=== PATIENT | female | born 1985 | race Caucasian/White ===

== ENCOUNTER 2025-04-20 15:12 | Outpatient (REF) | payer BC, SELFPAY ==
[2025-04-20 18:36] LABS: Alanine Aminotransferase 21 U/L (0-31); Albumin Level 4.7 g/dL (3.5-5.0); Alkaline Phosphatase 63 U/L (39-117); Anion Gap 11 (12-20); Aspartate Amino Transferase 23 U/L (5-31); Blood Urea Nitrogen 15 mg/dL (9-16); Calcium 9.4 mg/dL (8.4-10.2); Carbon Dioxide 28 mmol/L (22-29); Chloride 107 mmol/L (96-108); Estimated Glomerular Filt Rate > 60; Gamma Glutamyl Transpeptidase 23 U/L (7-33); Magnesium 1.9 mg/dL (1.6-2.6); Potassium 3.7 mmol/L (3.3-5.1); Sodium 142 mmol/L (135-145); Total Protein 7.2 g/dL (6.5-8.0)
[2025-04-20 19:06] LABS: Folate 9.7 ng/mL (> or = 4.0); Vitamin B12 291 pg/mL (200-900)
[2025-04-20 19:39] LABS: Erythrocyte Sedimentation Rate 6 MM/HR (0-20)
--- OUTSIDE RECORDS SUMMARY | 2025-04-20 21:39 | XMS_ITS | Encounter Summary ---
Author Organization [facility] Address [address] [place] [address] Phone Care Team Providers Care Occupational Therapist Per Diem Name Role Phone Abdirahman Lincoln DO Unavailable Perla Gilmroe BSA/AML COMPLIANCE OFFICER Unavailable [phone] Valdez Chicas MD Unavailable [phone] Wong Perez MD Unavailable [phone] Sil Bautista NP Unavailable [phone] Vicenteroland, Abdirahman A DO Primary Care Provider [phone] Latonia, Abdirahman Kai DO Unavailable Vicenteda, Abdirahman A DO Primary Care Provider [phone] Encounter Details Date Type Department Care Team (Latest Contact Info) Description 11/20/2019 Transcribe Orders Virtual Department [address] [place] [address] Clara Yañez PA [address] [place] [address] [place] [address] Nontoxic goiter, unspecified (Primary Dx) Social History Tobacco Use Types Packs/Day Years Used Date Smoking Tobacco: Never Comments Unknown Sex and Gender Information Value Date Recorded Sex Assigned at Female 01/17/2018 11:26 AM EDT Legal Sex Female 9:10 PM EDT Gender Identity Female 01/17/2018 11:26 AM EDT Sexual Orientation Not on file documented as of this encounter Plan of Treatment Not on file documented as of this encounter Results * US Thyroid Gland (12/04/2019 1:25 PM EDT) Anatomical Region Laterality Modality Neck, Head, Chest Ultrasound 12/04/2019 1:31 PM EDT Impressions 12/04/2019 1:32 PM EDT Normal study, no evidence of thyroid nodules or evidence of parathyroid adenoma. Narrative 12/04/2019 1:32 PM EDT US THYROID GLAND TECHNIQUE: Ultrasound of the thyroid. COMPARISON: none FINDINGS: Right Thyroid: The right lobe measures 5.4 cm in sagittal dimension. No right sided adenopathy is detected. Left Thyroid: The left lobe measures 4.3 cm in sagittal dimension. No left sided adenopathy is detected. Parathyroid: A parathyroid adenoma is not identified. Procedure Note Michele Pruitt MD - 12/04/2019 US THYROID GLAND TECHNIQUE: Ultrasound of the thyroid. COMPARISON: none FINDINGS: Right Thyroid: The right lobe measures 5.4 cm in sagittal dimension. No right sided adenopathy is detected. Left Thyroid: The left lobe measures 4.3 cm in sagittal dimension. No left sided adenopathy is detected. Parathyroid: A parathyroid adenoma is not identified. IMPRESSION: Normal study, no evidence of thyroid nodules or evidence of parathyroidadenoma. us Clara Titi TIRADO IMG US THYROID Final Resul t documented in this encounter Visit Diagnoses Diagnosis Nontoxic goiter, unspecified- Primary Nontoxic goiter, unspecified documented in this encounter Care Teams Occupational Therapist Per Diem Relationship Specialty Start Date End Date Abdirahman Lincoln DO PCP - General 05/16/17 06/03/24 Abdirahman Lincoln DO [address] [place] [address] PCP - General Internal Medicine 06/04/24 Abdirahman Lincoln DO Historical LMR Provider 02/25/17 Perla Gilmore NP [address] [place] [address] [email or web address] Historical LMR Provider 02/25/17 2 Valdez Chicas MD [address] [address] Historical LMR Provider 02/25/17 05/20/21 Wong Perez MD [address] [place] [phone] Historical LMR Provider 02/25/17 2 Sil Bautista NP [address] [place] [id number] Historical LMR Provider 02/25/17 2 Abdirahman Lincoln DO [address] [place] [phone] Insurance Assigned Provider 08/17/23 documented as of this encounter Additional Source Comments The information contained in this document represents components of the legal health record. It is not the complete legal health record.[facility]
--- OUTSIDE RECORDS SUMMARY | 2025-04-20 21:39 | XMS_ITS | Encounter Summary ---
Author Organization [facility] Address [address] [place] [address] Phone Care Team Providers Care Packaging Manager Name Role Phone Abdirahman Lincoln DO Unavailable Perla Gilmore FOUR SLIDE MACHINE SETTER Unavailable [phone] Valdez Chicas MD Unavailable [phone] Wong Perez MD Unavailable [phone] Sil Bautista NP Unavailable [phone] Abdirahman Lincoln DO Primary Care Provider [phone] Abdirahman Lincoln DO Unavailable Abdirahman Lincoln DO Primary Care Provider [phone] Encounter Details Date Type Department Care Team (Late st Contact Info) Description 01/17/2018 Procedure Pass [facility], Ct Scan - [address] [address] Social History Tobacco Use Types Packs/Day Years Used Date Smoking Tobacco: Never Comments Unknown Sex and Gender Information Value Date Recorded Sex Assigned at Female 01/17/2018 11:26 AM EDT Legal Sex Female 9:10 PM EDT Gender Identity Female 01/17/2018 11:26 AM EDT Sexual Orientation Not on file documented as of this encounter Plan of Treatment Not on file documented as of this encounter Visit Diagnoses Not on filedocumented in this encounter Care Teams Packaging Manager Relationship Specialty Start Date End Date Abdirahman Lincoln DO PCP - General 05/16/17 06/03/24 Abdirahman Lincoln DO [address] [place] [address] PCP - General Internal Medicine 06/04/24 Abdirahman Lincoln DO Historical LMR Provider 02/25/17 Perla Gilmore NP [address] [place] [address] [email or web address] Historical LMR Provider 02/25/17 2 Valdez Chicas MD [address] [address] Historical LMR Provider 02/25/17 05/20/21 Wong Perez MD [address] [place] [phone] Historical LMR Provider 02/25/17 2 Sil Bautista NP [address] [place] [phone] Historical LMR Provider 02/25/17 2 Abdirahman Lincoln DO [address] [place] [address] Insurance Assigned Provider 08/17/23 documented as of this encounter Additional Source Comments The information contained in this document represents components of the legal health record. It is not the complete legal health record.[facility]
--- OUTSIDE RECORDS SUMMARY | 2025-04-20 21:39 | XMS_ITS | Encounter Summary ---
Author Organization [facility] Address [address] [facility] [address] [place] [address] Phone Care Team Providers Care Environmental Monitoring Technician Name Role Phone Abdirahman Lincoln DO Unavailable Bigda, Abdirahman A DO Unavailable Bigda, Abdirahman A DO Primary Care Provider [phone] Reason for Referral * MRI/CAT Scan - Closed Specialty Diagnoses / Procedures Referred By Aminta pickard Referred To Contact Radiology Diagnoses Other specified disorders of synovium, left shoulder Procedures MRI Shoulder (Left) Clara Yañez PA [address] [place] [address] Phone: tel: fax: Referral ID Status Reason Start Date Expiration Date Visits Re quested Visits Authorized [id number] Closed 09/02/2024 09/02/2025 1 1 Encounter Details Date Type Department Care Team (Latest Contact Info) Description 09/02/2024 Transcribe Orders Virtual Department [address] [place] [address] Clara Yañez PA [address] [place] [address] [place] [address] Other specified disorders of synovium, left shoulder (Primary Dx) Social History Tobacco Use Types Packs/Day Years Used Date Smoking Tobacco: Never Smokeless Tobacco: Never Alcohol Use Standard Drinks/Week Comments Yes 0 (1 standard drink = 0.6 oz pur e alcohol) socially Education Answer Date Recorded Are you interested in more education? Not on sabine e 09/07/2022 Are you concerned about learning? Not on file 09/07/2022 No 09/07/2022 No 09/07/2022 Digital Access Answer Date Recorded No 10/05/2022 No 10/05/2022 Reliable internet access at home? Not on file 10/05/2022 Device with a working camera? Not on file Intimate Partner Violence Answer Date R ecorded Are you denied basic needs s uch as food, clothing, or medical care? No 05/29/2024 In the past 12 months have y ou been in a relationship with a person who hurts, threatens, or tries to control you? No 05/29/2024 Are you denied basic needs s uch as food, clothing, or medical care? No 05/29/2024 In the past 12 months have y ou been in a relationship with a person who hurts, threatens, or tries to control you? No 05/29/2024 Comments No Sex and Gender Information Value Date Recorded Sex Assigned at Female 01/17/2018 11:26 AM EDT Legal Sex Female 9:10 PM EDT Gender Identity Female 01/17/2018 11:26 AM EDT Sexual Orientation Not on file documented as of this encounter Plan of Treatment Not on file documented as of this encounter Results * MRI SHOULDER WITHOUT CONTRAST (LEFT) (09/19/2024 4:11 PM EDT) Anatomical Region Laterality Modality Shoulder Left Magnetic Resonan ce 09/22/2024 1:30 PM EDT Impressions 09/22/2024 1:57 PM EDT Unremarkable MRI of the left shoulder. Narrative 09/22/2024 1:57 PM EDT MRI SHOULDER WITHOUT CONTRAST (LEFT) Referring clinician's provided indication for this examination in Epic: Outside Radiology Order; infraspinatus tendinitis TECHNIQUE: Multi-sequence, multi-planar MRI of the shoulder without intravenous contrast. COMPARISON: Left shoulder radiographs 08/24/2024 FINDINGS: Coracoacromial Arch: The acromioclavicular joint is unremarkable. There is no significant fluid within the subacromial subdeltoid bursa. Rotator Cuff: The supraspinatus, infraspinatus, subscapularis, and teres minor tendons are intact. There is no fatty infiltration of the rotator cuff muscles. Glenoid Labrum and Biceps Tendon: Evaluation of the labrum is limited in the absence of intracapsular contrast. Within this limitation, there is no evidence of a discrete displaced labral tear. The long head of the biceps tendon is normally located and intact. Bones: There is no evidence of acute fracture, subluxation, or dislocation. Glenohumeral Joint: The glenohumeral articular cartilage is intact. There is no glenohumeral joint effusion. Additional Findings: The scapular notch and quadrilateral space are unremarkable. There is no lymphadenopathy by size criteria. Procedure Note Jeaneth Lopes MD - 09/22/2024 MRI SHOULDER WITHOUT CONTRAST (LEFT) Referring clinician's provided indication for this examination in Epic:Outside Radiology Order; infraspinatus tendinitis TECHNIQUE: Multi-sequence, multi-planar MRI of the shoulder withoutintravenous contrast. COMPARISON: Left shoulder radiographs 08/24/2024 FINDINGS: Coracoacromial Arch: The acromioclavicular joint is unremarkable. There isno significant fluid within the subacromial subdeltoid bursa. Rotator Cuff: The supraspinatus, infraspinatus, subscapularis, and teresminor tendons are intact. There is no fatty infiltration of the rotatorcuff muscles. Glenoid Labrum and Biceps Tendon: Evaluation of the labrum is limited inthe absence of intracapsular contrast. Within this limitation, there is noevidence of a discrete displaced labral tear. The long head of the bicepstendon is normally located and intact. Bones: There is no evidence of acute fracture, subluxation, ordislocation. Glenohumeral Joint: The glenohumeral articular cartilage is intact. Thereis no glenohumeral joint effusion. Additional Findings: The scapular notch and quadrilateral space areunremarkable. There is no lymphadenopathy by size criteria. IMPRESSION: Unremarkable MRI of the left shoulder. Clara TIRADO IMG MR EXTREMITY Final Resu lt documented in this encounter Visit Diagnoses Diagnosis Other specified disorders of synovium, left shoulder- Primary Other specified disorders of synovium, left shoulder documented in this encounter Care Teams Environmental Monitoring Technician Relationship Specialty Start Date End Date Abdirahman Lincoln DO [address] [place] [address] PCP - General Internal Medicine 06/04/24 Abdirahman Lincoln DO Historical LMR Provider 02/25/17 Abdirahman Lincoln DO [address] [place] [address] Insurance Assigned Provider 08/17/23 documented as of this encounter Additional Source Comments The information contained in this document represents components of the legal health record. It is not the complete legal health record.[facility]
--- OUTSIDE RECORDS SUMMARY | 2025-04-20 21:39 | XMS_ITS | Encounter Summary ---
Author Organization [facility] Address [address] [facility] [address] [place] [address] Phone Care Team Providers Care Welfare Aide Name Role Phone Abdirahman Lincoln DO Unavailable Bigda, Abdirahman A DO Unavailable Bigda, Abdirahman A DO Primary Care Provider [phone] Encounter Details Date Type Department Care Team (Late st Contact Info) Description 09/02/2024 Procedure Pass [facility], [address] [address] Social History Tobacco Use Types Packs/Day Years [...] on filedocumented in this encounter Care Teams Welfare Aide Relationship Specialty Start Date End Date Abdirahman Lincoln DO [address] [place] [address] PCP - General Internal Medicine 06/04/24 Abdirahman Lincoln DO Historical LMR Provider 02/25/17 Abdirahman Lincoln DO [address] [place] [address] Insurance Assigned Provider 08/17/23 documented as of this encounter Additional Source Comments The information contained in this document represents components of the legal health record. It is not the complete legal health record.[facility]
--- OUTSIDE RECORDS SUMMARY | 2025-04-20 21:39 | XMS_ITS | Clinical Summary ---
Author Organization [facility] Address [address] [place] [phone] Phone Care Team Providers Care Station Detective Name Role Phone Abdirahman Lincoln DO Unavailable Bigda, Abdirahman A DO Unavailable Bigda, Abdirahman A DO Primary Care Provider [phone] Allergies Active Allergy Reactions Criticality Noted Date Comments Calcium Phosphate-Vitamin D3 Throat Tightness Medium 05/29/2024 Culture in yogurt only - not gummy Medications ibuprofen (ADVIL,MOTRIN) 600 MG tablet Take 1 tablet (600 mg total) by mouth every 6 (six) hours as needed. 2 Active Additional Information Patient not taking.Reported on 05/29/2024 amitriptyline (ELAVIL) 10 MG tablet Take 1 tablet (10 mg total) by mouth nightly at bedtime. 30 tablet 1 4 Active Additional Information Patient not taking.Reported on 05/29/2024 Active Problems Problem Noted Date Diagnosed Date Dyspareunia in female 06/04/2023 Thyromegaly 01/16/2022 Overview (01/16/2022): Client reports that size of thyroid has been noted chronically, she has had her thyroid hormones checked repeatedly and they have been normal. She reports no history of thyroid imaging. Consider follow up with PCP . Needle phobia 01/16/2022 Overview (01/16/2022): Please keep IVs covered, do not allow client to see needles, wait until she says ready to proceed. Assessment & Plan (01/16/2022 11:09 PM EDT): Consents to IVs in labor, aware that 2 may be necessary History of anxiety 11/19/2021 Assessment & Plan (11/19/2021 12:57 PM EDT): Has a long history of anxiety and has used meds in the past through PCP. She has been feeling great in and thinks the hormones have really helped her EPDS 5 today. Does plan to get back on meds PP, has reached out to PCP already. Cystic fibrosis carrier 07/18/2021 Overview (08/22/2021): Patient is a carrier. Partner Kishore Raymond tested and is negative Assessment & Plan (08/22/2021 2:48 PM EDT): Partner was tested and is negative. Assessment & Plan (07/25/2021 1:15 PM EDT): We reviewed CF carrier status; advised partner screening. She agrees. TE sent to triage to facilitate screening for Kishore Raymond. Resolved Problems Problem Noted Date Diagnosed Date Resolved Date Normal intrauterine , antepartum 01/16/2022 06/04/2023 Encounter for induction of labor 01/16/2022 06/04/2023 Overview (01/18/2022): For GDMA2 at 39.2. 01/16/22 20:45 Cervix posterior on admission, CNM not easily able to reach cervix. 25mcg misoprostol SL 01/17/22 01:45 25mcg misoprostol SL, exam deferred 06:00 25 mcg misoprostol SL, exam deferred 10:00 25 mcg misoprostol SL, exam deferred 21:00 starting low-dose Pitocin 01/18/22 01:30 requesting epidural 03:00 SVE attempted, vertex at 0 station and unable to reach os due to low presenting part Assessment & Plan (01/18/2022 6:58 AM EDT): A: 36 y.o. at 39w3d for IOL s/t GDMA1 Cat 1 FHR GBS neg Covid neg Euglycemic P: - Cont to titrate Pitocin per protocol - Discussed repeat cervical exam this morning. Plan to defer to oncoming weigher alloy as pt has not yet achieved adequate contraction pattern and was just assisted into side-lying position when I entered - Report given to morning team Insulin controlled gestation al diabetes mellitus (GDM) in third trimester 12/28/20212023 Overview (01/04/2022): Diabetes on medications 12/28/21 insulin started at 10units. 01/04/22 insulin increased to 12 units for elevated fastings o refer to CEDE --done o 32 wks: BPP -- not done, dx at 36+4 wks o 36 wks add NST --weekly bpp and nst ordered o 36-39wks growth sono o Induction at 39-40.0 wks --discussed with patient. Assessment & Plan (03/01/2022 12:48 PM EDT): Disc artemio to have 2 hr GTT to determine underlying DM at the hospital and yearly HgbA1c Disc importance of daily walking and low-glycemic, anti-inflammatory diet for prevention Assessment & Plan (01/16/2022 10:49 PM EDT): During cervical ripening and early labor check 1-2 hour postprandial blood glucose, if client sleeps overnight check a morning fasting. On admission/ night 1, administer detemir 12 units Blood sugars since admission - random blood glucose (90), 2 hour postprandial (121). Reviewed plan of care with Dr. Morris. Assessment & Plan (01/11/2022 12:55 PM EDT): Still taking insulin 12 units. Fasting BG tends to be 105-110. Postprandials tend to be okay. Wakes in the night feeling nausea/hungry. Plans to message CEDE today. NST reactive today. Discussed IOL may take a couple of days, process of achieving active labor. Reviewed will most likely need two IVs in labor, will have frequent blood glucose checks in active labor, and may need IV insulin. Benji is very anxious at the thought of IVs, also anxious at the thought of nitrous and will not want to use it for IV placement. Would like to have IVs covered so she doesn't seem them - discussed we can be creative about that. Assessment & Plan (01/04/2022 1:09 PM EDT): Pt states she is following the GDM diet very well All FBS are elevated 109-111 generally. Insulin increased to 12units FKK reviewed. Assessment & Plan (12/28/2021 1:17 PM EDT): Pt crying, and very upset with diagnosis. Feels confused about why fasting bs is so high and pp bs is normal. Feels overwhelmed with diagnosis and need for nightly injections. Pt has a needle phobia. Long discussion with pt regarding dx and recommendations. We reviewed that when fasting bs is elevated and unable to be controlled with diet that insulin does the work her body needs help with. Pt demonstrated understanding and agrees with testing. Wants some time to consider iol--please discuss at [place] Fasting bs average 115. Most pp bs normal. Biweekly testing ordered. Elevated glucose tolerance test 10/29/2021 06/04/2023 Overview (01/16/2022): Client on long acting insulin detemir since 12/28, now on 12 units nightly. Has been adherent to low glycemic index diet. One hour GTT 164 3 hour 112/171/150/114 Due to elevated FBS on 3 hr, followed by [facility] Assessment & Plan (12/14/2021 12:40 PM EDT): Has appt with [facility] today Assessment & Plan (11/16/2021 2:29 PM EDT): 3 hr not diagnostic for GDM but FBS was 112. Due to this I recommend [facility] referral for blood gluocse monitoring and dietary education if needed. She agrees Assessment & Plan (11/01/2021 5:21 PM EDT): Reviewed elevated 1 hr results- Benji plans to do three hour test on Saturday morning. Will follow up PRN. Assessment & Plan (10/29/2021 7:27 PM EDT): One hour GTT 164 Pt needs a 3hr gtt Order placed Encounter for supervision of normal first in third trimester 06/29/2021 06/04/2023 Overview (03/01/2022): CNM OB-CMI score: 1 [06/22/2021] Group PN care - gave info 09/05 Rh + GC/Chlam negative PAP 06/2021 nl/neg HPV Tdap 11/30/21 Flu * COVID-19 vaxed, will get booster Hgb 12.2 GTT 164 - 3 hr --only elevated fasting. 28 wk Repeat RPR neg GBS Neg PPBC Condoms screening nl NT, AFP declined Assessment & Plan (01/11/2022 12:54 PM EDT): Benji is a 36 y.o. at 38w4d, here for CARLITOS and NST Feeling very anxious about the . Will have her and sister with her. Tearful at discussion of things to expect in the induction/labor/. Reviewed FKC, encouraged to call with any decreased FM. Will return for BPP on 01/16 then IOL that evening at the [facility]. Assessment & Plan (01/04/2022 1:07 PM EDT): Benji reports feeling well. Baby very active. Denies s/sx of labor. BPP 01/01 was 8/8 NST reactive today. Pt would like to book IOL--scheduled for 01/16 at 1830 We discussed process and methods briefly. CARLITOS 01/08 as scheduled for BPP Assessment & Plan (12/28/2021 1:18 PM EDT): Baby active. Benji denies s/sx of ptl. GBS obtained and sent. RTO in 4 days for follow up with CNM and NST. Assessment & Plan (12/14/2021 12:40 PM EDT): Benji is a 36 y.o. at 34w4d Feeling okay. Active baby. GBS next visit, pt aware Encouraged to stay hydrated Reviewed plan for visits for remainder of . CARLITOS in two weeks Assessment & Plan (11/30/2021 1:21 PM EDT): Benji is a 36yo @ 32+4wks. States baby is very active. She denies s/sx of ptl. Very tearful today, states she's not sure why. She says her mood is good, just feeling emotional. Did not get referral to CEDE. We discussed GDM diet and will place referral again. We discussed that she does not have GDM, but bc fasting was elevated she may benefit from CEDE counseling. tdap given. Does not want to take CBE classes bc she says it will make her more anxious. States she is doing a lot of reading on her own and feels prepared. CARLITOS 2 wks. Assessment & Plan (11/19/2021 12:58 PM EDT): Benji is a 36 y.o. at 30w4d doing well. Denies VB/LOF/Ctxs. + FM. Discussed TDAP, she will do but wants to prepare - will do at [place]. Planning to pump breast milk for baby, worried she hasn't had colostrum yet - reassured that is fine and everyone is different. Today we discussed Pain management options for labor and . Assessment & Plan (11/08/2021 10:02 AM EDT): Benji was walking her dogs today and fell onto her bottom. She did not hit her belly. She is having some coccyx pain but no other complaints. She is feeling baby move. No pain in belly, no bleeding, no tightening in belly. She is nervous and wants to make sure her baby is ok. Normal heart rate. Positive movement. Belly is soft and non-tender. No tightening noted. Reassured that is ok. She will continue to monitor for symptoms. Tylenol and ice pack for coccyx pain. 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 Will call with any concerns. Assessment & Plan (11/01/2021 5:23 PM EDT): Benji is doing well- biggest complaint is worsening heartburn with no relief from tums. Safe meds reviewed- she will go to the pharmacy today. +FM. Hospital packet given. She is doing a lot of reading/ prep on her own, doesn't plan CBE. Return OB in two weeks. Assessment & Plan (10/10/2021 8:59 AM EDT): Benji is a 36 y.o. at 24w1d states she feels well today. Denies any concerns at this time. Denies any LOF/Vaginal bleeding/Ucs. Reports +FM -Discussed FM at this [facility] and [facility] -Prenatals re-ordered -Review signs and symptoms of Pre-term Labor and when/how to contact midwives -2nd trimester labs discussed for 28 wks. -Pt advised to come in earlier [place] and stop at the lab first to drink glucose drink prior to coming up for her CARLITOS visit. -Advised on Tdap administration in and implications. Administered between 28-36wk. - care structure discussed biweekly visits going forward -NV in 4 weeks Assessment & Plan (09/05/2021 3:17 PM EDT): Benji is a 36 y.o. at 20w2d, here with partner, Chay. Has felt a little movement. Nausea is improving. Normal anatomy scan today but multiple limited views. It's a girl! Discussed OPG and CBE, gave info for both Discussed schedule of visits. CARLITOS and repeat US in four weeks Assessment & Plan (08/22/2021 2:53 PM EDT): Feels ok, still struggling intermittently with nausea. Mostly gagging with strong smells and has some nausea several days per week. Able to tolerate a wide variety of foods and does not feel she needs any medical management. Discussed quickening, she is not feeling FM yet. Discussed AFP, she declines. Discussed and scheduled anatomy scan. Assessment & Plan (07/25/2021 1:14 PM EDT): Benji feels well and has no new ob concerns today. She denies vaginal bleeding, cramping, leaking fluid. RTO 4 weeks. Vaginal bleeding in pregnanc y, first trimester 06/13/2021 06/04/2023 Overview (07/12/2021): U/s today shows viable IUP with a clot left of the sac that is 4.7 x 1.9 x 1.1 cm Repeat US at 10 weeks, clot has shrunk to 1.8 x 1.2 x 1.1cm, and further shrinking on NT. No further testing indicated Assessment & Plan (06/13/2021 12:38 PM EST): Counseled; reassuring to have the pos FHR type is Rh positive Plan to repeat in 2 weeks discussed option to proceed now with an intake and routine care, or can defer this til after the next scan. Encounters Date Type Department Care Team Description 04/03/2025 1:00 AM EST - 04/03/2025 4:20 AM EST Emergency [facility] [address] [place] [address] Discharge Disposition: Home or Self Care from Last 3 Months Immunizations Immunization Administration Dates Next Due Tdap 11/30/2021 Family History Medical History Relation Comments Hypotension Father Anxiety disorder Maternal Grandfather Arthritis Maternal Grandfather Glaucoma Maternal Grandfather Gout Maternal Grandfather Heart disease Maternal Grandfather Anxiety disorder Maternal Grandmother Diabetes Maternal Grandmother Scoliosis Maternal Grandmother Allergies Mother Anxiety disorder Mother Arthritis Mother Hypertension Paternal Grandfather Stroke Paternal Grandfather Dialysis Paternal Grandmother Heart attack Paternal Grandmother Allergies Sister Anxiety disorder Sister Thyroid disease Sister Relation Status Comments Father Alive Maternal Grandfather Alive Maternal Grandmother Alive Mother Alive Paternal Grandfather Paternal Grandmother Sister Alive Social History Tobacco Use Types Packs/Day Years Used Date Smoking Tobacco: Never Smokeless Tobacco: Never Tobacco Cessation:Counseling Given: Not Answered Alcohol Use Standard Drinks/Week Comments Yes 0 (1 standard drink = 0.6 oz pur e alcohol) socially Education Answer Date Recorded Are you interested in more education? Not on sabine e 09/07/2022 Are you concerned about learning? Not on file 09/07/2022 No 09/07/2022 No 09/07/2022 Food Answer Date Recorded Within the past 6 months we worried whether our food would run out before we got money to buy more. Unable to assess 025 Within the past 6 months the food we bought just didn't last and we didn't have enough money to get more. Unable to assess 04/03/2025 Residential Stability Answer Date Recor ded What is your housing situation today? Unable to assess 04/03/2025 How many times have you moved in the past 12 sat th? Unable to assess 04/03/2025 Paying for Meds Answer Date Recorded Do you have trouble paying for medicines? Unable to assess 04/03/2025 Paying Utility Bills Answer Date Record ed Do you have trouble paying y our heating or electricity bill? Unable to assess 04/03/2025 Transportation Answer Date Recorded Has the lack of transportati on kept you from medical appointments or from getting medications? Unable to assess 04/03/2025 Digital Access Answer Date Recorded No 04/03/2025 No 04/03/2025 Do you have reliable internet access at home? Un able to assess 04/03/2025 Do you have a device (e.g., phone, tablet, computer) with a working camera? Unable to assess 04/03/2025 Intimate Partner Violence Answer Date R ecorded Are you denied basic needs s uch as food, clothing, or medical care? No 04/03/2025 In the past 12 months have y ou been in a relationship with a person who hurts, threatens, or tries to control you? No 04/03/2025 Are you denied basic needs s uch as food, clothing, or medical care? No 04/03/2025 In the past 12 months have y ou been in a relationship with a person who hurts, threatens, or tries to control you? No 04/03/2025 Comments No Sex and Gender Information Value Date Recorded Sex Assigned at Female 01/17/2018 11:26 AM EDT Legal Sex Female 9:10 PM EDT Gender Identity Female 01/17/2018 11:26 AM EDT Sexual Orientation Not on file Last Filed Vital Signs Vital Sign Reading Time Taken Comments Blood Pressure 132/77 04/03/2025 4:16 AM EST Pulse 84 04/03/2025 4:16 AM EST Temperature 36.7 C (98 F) 04/03/2025 4:16 AM EST Respiratory Rate 17 04/03/2025 4:16 AM EST Oxygen Saturation 98% 04/03/2025 4:16 AM EST Inhaled Oxygen Concentration - - Weight 104.3 kg (230 lb) 04/03/2025 12:46 AM EST Height 180.3 cm (5' 11 ) 04/03/2025 12:46 AM EST Body Mass Index 32.08 04/03/2025 12:46 AM EST Plan of Treatment Health Maintenance Due Date Last Done Comments DEPRESSION SCREENING 1999 PAP SMEAR 06/29/2024 06/29/2021, 06/01/2016 INFLUENZA VACCINE (#1) 2024 COVID-19 VACCINE (2024-2 6 season) 2025 11/06/2020, 10/16/2020 SCREENING FOR DIABETES 01/19/2025 , 01/16/2022 Adult Td,Tdap Booster 12/01/2031 11/30/2021 , 11/08/2021 HEPATITIS C SCREENING Completed 07/10/2021 , 07/10/2021, 07/10/2021 HIV ONE-TIME SCREENING (18-6 5 YEARS) Completed 07/10/2021 SMOKING STATUS SCREENING (On ce After 26 Yrs) Completed 06/26/2023 HEPATITIS A VACCINES Aged Out No long er eligible based on patient's age to complete this topic HIB VACCINES Aged Out No longer eligi ble based on patient's age to complete this topic MENINGOCOCCAL VACCINES (ACWY) Aged Out No longer eligible based on patient's age to complete this topic MENINGOCOCCAL VACCINES (B) Aged Out N o longer eligible based on patient's age to complete this topic PNEUMOCOCCAL VACCINES (0-49 years) Aged Out No longer eligible b ased on patient's age to complete this topic Medical Devices Not on file Procedures Procedure Name Priority Date/Time Associated Diagnosis Comments URINALYSIS WITH REFLEX TO URINE CULTURE STAT 04/03/2025 3:04 AM EST XR CHEST PA AND LATERAL 2 VIEWS Routine 04/03/2025 2:55 AM EST TROPONIN STAT 04/03/2025 2:48 AM EST CBC AND DIFFERENTIAL STAT 04/03/2025 1:28 AM EST TROPONIN STAT 04/03/2025 1:28 AM EST LIPASE STAT 04/03/2025 1:28 AM EST LFTS (HEPATIC PANEL) STAT 04/03/2025 1:28 AM EST CBC AND DIFFERENTIAL STAT 04/03/2025 1:28 AM EST BASIC METABOLIC PANEL (BMP) STAT 04/03/2025 1:28 AM EST ECG 12-LEAD STAT 04/03/2025 12:53 AM EST GLUCOSE Routine 01/16/2022 7:37 PM EDT HEPATITIS C ANTIBODY, QUALITATIVE Routine 07/10/2021 1:59 PM EST Need for hepatitis C screening test PAP TEST Routine 06/29/2021 12:00 AM EST from Last 3 Months or Most Recently Relevant to Health Maintenance Results * Urinalysis with Reflex to Urine Culture (04/03/2025 3:04 AM EST) Color Yellow Yellow 04/03/2025 3:15 AM EST [facility] Clarity Clear Clear 04/03/2025 3:15 AM EST [facility] Glucose Negative Negative 04/03/2025 3:15 AM EST [facility] Bilirubin Urine Negative Negative 3:15 AM EST [facility] Ketone Urine Negative Negative 04/03/2025 3:15 AM EST [facility] Specific [place] 1.020 1.001 - 1.035 04/03/2025 3:15 AM EST [facility] Blood Negative Negative 04/03/2025 3:15 AM EST [facility] pH 6.0 5.0 - 8.0 04/03/2025 3:15 AM EST [facility] Protein Negative Negative 04/03/2025 3:15 AM EST [facility] Nitrites Negative Negative 04/03/2025 3:15 AM EST [facility] Leukocyte Esterase Negative Negative 04/03/2025 3:15 AM EST [facility] Urobilinogen Negative Negative 04/03/2025 3:15 AM EST [facility] Urine (Urine, Voided) Non-Blood Collection / Unknown 04/03/2025 3:04 AM EST 04/03/2025 3:07 AM EST us Joselito Hansen PA-C LAB URINE ORDERABLES Final R esult Performing Organization Address City/State/[facility] Co de Phone Number [address] [address] * XR CHEST PA AND LATERAL 2 VIEWS (04/03/2025 2:55 AM EST) Anatomical Region Laterality Modality Chest Computed Radiogr aphy 04/03/2025 3:09 AM EST Impressions 04/03/2025 3:09 AM EST No acute abnormality. Narrative 04/03/2025 3:09 AM EST XR CHEST PA AND LATERAL 2 VIEWS Referring clinician's provided indication for this examination in [facility]: Pain COMPARISON: None FINDINGS: Devices/Tubes/Lines: None. Lungs: No focal consolidation or pulmonary edema. Pleura: No pleural effusion or pneumothorax. Heart/Mediastinum: Normal heart and mediastinum. Bones/Soft Tissues: Degenerative changes of the thoracic spine. Procedure Note Dottie Lau MD - 04/03/2025 XR CHEST PA AND LATERAL 2 VIEWS Referring clinician's provided indication for this examination in [facility]:Pain COMPARISON: None FINDINGS: Devices/Tubes/Lines: None. Lungs: No focal consolidation or pulmonary edema. Pleura: No pleural effusion or pneumothorax. Heart/Mediastinum: Normal heart and mediastinum. Bones/Soft Tissues: Degenerative changes of the thoracic spine. IMPRESSION: No acute abnormality. Joselito Hansen PA-C IMG XR CHEST Final Result * Troponin (04/03/2025 2:48 AM EST) Only the most recent of2 resultswithin the time period is included. Troponin-T HS Gen5 <6 0 - 9 ng/L 04/03/2025 3:31 AM [facility] Blood (Blood) Venipuncture / Unknown 04/03/2025 2:48 AM EST 04/03/2025 3:00 AM EST Joselito Hansen PA-C LAB BLOOD BKR ORDERABLES Fin al Result Performing Organization Address City/State/[facility] Co de Phone Number [address] [address] * (ABNORMAL) CBC and Differential (04/03/2025 1:28 AM EST) WBC 10.22 4.00 - 11.00 K/uL 04/03/2025 1:36 AM [facility] RBC 4.66 4.00 - 5.20 M/uL 04/03/2025 1:36 AM [facility] Hemoglobin 13.8 12.0 - 16.0 g/dL 04/03/2025 1:36 AM [facility] Hematocrit 40.1 36.0 - 46.0 % 04/03/2025 1:36 AM [facility] MCV 86.1 80.0 - 100.0 fL 04/03/2025 1:36 AM [facility] MCH 29.6 27.0 - 31.0 pg 04/03/2025 1:36 AM [facility] MCHC 34.4 32.0 - 36.0 g/dL 04/03/2025 1:36 AM [facility] MPV 9.3 8.4 - 12.0 fL 04/03/2025 1:36 AM [facility] RDW-CV 11.9 11.5 - 14.5 % 04/03/2025 1:36 AM [facility] PLT 228 150 - 450 K/uL 04/03/2025 1:36 AM [facility] Neutrophils 78.6 % 04/03/2025 1:36 AM [facility] Lymphocytes 16.0 % 04/03/2025 1:36 AM [facility] Monocytes 4.6 % 04/03/2025 1:36 AM [facility] Eosinophils 0.3 % 04/03/2025 1:36 AM [facility] Basophils 0.2 % 04/03/2025 1:36 AM [facility] Imm Grans 0.3 % 04/03/2025 1:36 AM [facility] NRBC 0.0 <=0.0 /100 WBCs 04/03/2025 1:36 AM [facility] Absolute Neutrophils 8.03(H) 1.92 - 7.60 K/uL 04/03/2025 1:36 AM [facility] Absolute Lymphocytes 1.64 0.72 - 4.10 K/uL 04/03/2025 1:36 AM [facility] Absolute Monocytes 0.47 0.16 - 1.10 K/uL 04/03/2025 1:36 AM [facility] Absolute Eosinophils 0.03 0.00 - 0.50 K/uL 04/03/2025 1:36 AM [facility] Absolute Basophils 0.02 0.00 - 0.15 K/uL 04/03/2025 1:36 AM [facility] Absolute Imm Grans 0.03 0.00 - 0.09 K/uL 04/03/2025 1:36 AM [facility] Absolute NRBC 0.00 <=0.00 K cells/uL 04/03/2025 1:36 AM [facility] Absolute Neutrophils 8.03(H) 1.92 - 7.60 K/uL 04/03/2025 1:36 AM [facility] Comment:Automated cell count . Manual ANC may differ if performed. Diff Type Auto 04/03/2025 1:36 AM [facility] Blood (Blood) Venipuncture / Unknown 04/03/2025 1:28 AM EST 04/03/2025 1:33 AM EST us Joselito Hansen PA-C LAB BLOOD BKR ORDERABLES Fin al Result Performing Organization Address City/[facility]/ZIP Co de Phone Number [address] [address] * Hepatic Panel (LFTs) (04/03/2025 1:28 AM EST) AST 14 <33 U/L 04/03/2025 1:59 AM [facility] ALT 13 <34 U/L 04/03/2025 1:59 AM [facility] Alkaline Phosphatase 60 40 - 130 U/L 04/03/2025 1:59 AM [facility] Bilirubin, Total 0.3 0.0 - 1.2 mg/dL 04/03/2025 1:59 AM [facility] Bilirubin, Direct 0.1 0.0 - 0.3 mg/dL 04/03/2025 1:59 AM [facility] Total Protein 7.1 6.4 - 8.3 g/dL 04/03/2025 1:59 AM [facility] Albumin 4.5 3.5 - 5.2 g/dL 04/03/2025 1:59 AM [facility] Globulin 2.6 1.9 - 4.1 g/dL 04/03/2025 1:59 AM [facility] Blood (Blood) Venipuncture / Unknown 04/03/2025 1:28 AM EST 04/03/2025 1:33 AM EST us Joselito Hansen PA-C LAB BLOOD BKR ORDERABLES Fin al Result [address] [address] * Lipase (04/03/2025 1:28 AM EST) Lipase 30 13 - 60 U/L 04/03/2025 1:59 AM EST [facility] Blood (Blood) Venipuncture / Unknown 04/03/2025 1:28 AM EST 04/03/2025 1:33 AM EST us Joselito Hansen PA-C LAB BLOOD BKR ORDERABLES Fin al Result Performing Organization Address City/[facility]/ZIP Co de Phone Number [address] [address] * (ABNORMAL) Basic Metabolic Panel (BMP) (04/03/2025 1:28 AM EST) [facility] Sodium 138 136 - 145 mmol/L 04/03/2025 1:59 AM [facility] Potassium 4.5 3.4 - 5.1 mmol/L 04/03/2025 1:59 AM [facility] Chloride 101 98 - 107 mmol/L 04/03/2025 1:59 AM [facility] CO2 25 20 - 31 mmol/L 04/03/2025 1:59 AM [facility] Anion Gap 12 3 - 17 mmol/L 04/03/2025 1:59 AM [facility] BUN 10 6 - 23 mg/dL 04/03/2025 1:59 AM [facility] Creatinine 0.80 0.50 - 1.00 mg/dL 04/03/2025 1:59 AM [facility] eGFR 97 >59 mL/min/1.7 3m2 04/03/2025 1:59 AM [facility] Comment:Estimated glomerular filtration rate calculated using the CKD-EPI refit equation. Glucose 156(H) 70 - 99 mg/dL 04/03/2025 1:59 AM [facility] Calcium 9.6 8.5 - 10.5 mg/dL 04/03/2025 1:59 AM [facility] Blood (Blood) Venipuncture / Unknown 04/03/2025 1:28 AM EST 04/03/2025 1:33 AM EST us Joselito Hansen PA-C LAB BLOOD BKR ORDERABLES Fin al Result Performing Organization Address City/[facility]/ZIP Co de Phone Number [address] [place] [address] * ECG 12-LEAD (04/03/2025 12:53 AM EST) Ventricular Rate EKG/MIN 65 BPM [facility] Atrial Rate 300 BPM [facility] QRS Duration 102 ms [facility] QT Interval 410 ms [facility] QTC Interval 426 ms [facility] P [place] 71 degrees [facility] R Wave [place] 44 degrees [facility] T Wave [place] 50 degrees [facility] 04/03/2025 12:5 3 AM EST 04/03/2025 11:49 AM EST Narrative [facility] - 04/03/2025 11:49 AM EST Atrial flutter with variable A-V block Abnormal ECG When compared with ECG of 29-May-2024 21:38, Atrial flutter has replaced Sinus rhythm Confirmed by Richie Blood ([id number]) on 04/03/2025 11:49:15 AM us Joselito Hansen PA-C ECG ORDERABLES Final Result Performing Organization Address [facility] Co de Phone Number [facility] * Glucose (01/16/2022 7:37 PM EDT) GLUCOSE 90 70 - 99 mg/dL [facility] Blood 01/16/2022 7:37 PM EDT 01/16/2022 7:42 PM EDT us Sandip Richardson CNM LAB BLOOD BKR ORDERABLES Final Result Performing Organization Address City/[facility]/ZIP Co de Phone Number [address] [address] * Hepatitis C antibody, qualitative (07/10/2021 1:59 PM EST) HCV NON-REACTIV E NON-REACTI VE [facility] Blood 07/10/2021 1:59 PM EST 07/10/2021 2:02 PM EST us Portia Pierce MD LAB BLOOD BKR ORDERABLES F inal Result [address] [address] * Pap Smear (06/29/2021 12:00 AM EST) 06/29/2021 06/30/2021 8:3 4 AM EST Narrative SEE NARRATIVE - 07/06/2021 11:33 AM EST [address] [address] Functional Tester: Rachele Garcia MD TRIM MASTER OPERATOR Cytology Report FINAL DIAGNOSIS A. PAP SMEAR (SUREPATH) CE: SPECIMEN ADEQUACY: Satisfactory for evaluation; transformation zone absent/insufficient. INTERPRETATION: NEGATIVE FOR INTRAEPITHELIAL LESION OR MALIGNANCY. Electronically Signed Out By: MIGUEL Mills(ASCP) The Pap test is a screening test primarily for squamous cancers and precursors and has associated false-negative and false-positive results. New technologies such as liquid-based preparations may decrease but will not eliminate all false-negative results. Regular sampling and follow-up of unexplained clinical signs and symptoms are recommended to minimize false negative results. PROCEDURES/ADDENDA HPV Testing (Requested) Ordered Date: 06/30/2021 A. PAP SMEAR (SUREPATH) CE: Human Papilloma Virus Test Negative for high-risk human papillomavirus types 16, 18, 45 and the Other high risk probe set (Includes 31, 33, 35, 39, 51, 52, 56, 58, 59, 66, 68) by [employer] Onclarity HR-HPV analysis. Clinical correlation is advised. This HPV test was performed at [facility], [address] [place] [address]. This test has been FDA approved for SurePath cervical cytology specimens. The accuracy and precision of this test for all other specimen sources has been verified in the Cytopathology Laboratory of the [facility] and has not been cleared or approved by the U.S. Food and Drug Administration. Clinical correlation is advised. CLINICAL HISTORY Date of Last Menstrual Period: Not Provided Menstrual History: Other Clinical Conditions: Screening Pap SPECIMEN SOURCE A: PAP SMEAR (SUREPATH) CE Patient Name: BENJI SERRANO : 1985 (Age: 36) Sex: F Institution: [facility] Location: [facility] Date of Collection: 06/29/2021 Date of Reported: 07/05/2021 11:54 Results to: Portia Pierce MD Portia Pierce MD CYTOLOGY ORDERABLES Edited Result - Final SEE NARRATIVE from Last 3 Months or Most Recently Relevant to Health Maintenance [place] [address] [place] [address] [place] [address] [place] [address] [place] [address] [place] [address] Advance Directives For more information, please contact: [phone] (9AM - 5PM [facility], Saturday-Saturday) Documents on File Type Date Recorded 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 It is not the complete legal health record.[facility]
--- OUTSIDE RECORDS SUMMARY | 2025-04-20 21:39 | XMS_ITS | Data Portability ---
Author Organization [facility], Telehealth Patient Home Address [address] [place] [address] Assessment Encounter Date Assessment Date Assessment LastModified by Organization Details LastModified Time 10/28/2023 10/28/2023 The patient denies little pleasure in activities they find enjoyable, feeling depressed, difficulties sleeping, feeling tired or having little energy, change in appetite, feeling guilty, overwhelmed or unmotivated. The patient denies suicidal ideation, thoughts of hurting themselves or others. Their mood is appropriate, they show good judgement and clear understanding of the conversation. They are orientated to time, place and person. They are not expressing any concerning thoughts or actions that would need further investigation and treatment for mental health. [email or web address] Not available 10/28/2023 10:52:14 Plan of Treatment Reminders Order Date Submit Date Provider Last Modified By Organization Details Last Modified Time Details Appointments FOLLOW UP 15 2024 02:30P CANDIDA WILLIAMSON Not available Not available Not available Lab CMP, serum or plasma 2024 025 [facility], [address] [place] [address], [id number], 04/20/2025 15:05:24 magnesium , serum or plasma 2024 025 [facility], [address] [place] [address], [id number], 04/20/2025 15:05:24 ESR (erythroc yte sedimenta tion rate), blood 2024 025 [facility], [address] [place] [address], [id number], 04/20/2025 15:05:24 C reactive protein, QN, serum or plasma 2024 025 [facility], [address] [place] [address], [id number], 04/20/2025 15:05:24 vitamin B12 + folate, serum or blood 2024 025 [facility], [address] [place] [address], [id number], 04/20/2025 15:05:24 hemoglobi n A1c, QN, blood 2024 025 [facility], [address] [place] [address], [id number], 04/20/2025 15:05:24 gamma-glu tamyl transfera se (ggt), serum 2024 025 [facility], [address] [place] [address], [id number], 04/20/2025 15:05:24 CBC w/ auto diff 2024 025 [facility], [address] [place] [address], [id number], 04/20/2025 15:05:24 uric acid, serum or plasma 2023 024 [facility]), [address] [place] [address], [id number], 11/27/2023 14:23:14 CMP, serum or plasma 2023 024 [facility]), [address] [place] [address], [id number], 11/27/2023 14:23:14 CBC w/ auto diff 2023 024 [facility]), [address] [place], [address], 11/27/2023 14:23:14 C-reactiv e protein, quantitat britney, serum or plasma 2023 024 [facility]), [address] [place], [address], 11/27/2023 14:23:14 ESR (erythroc yte sedimenta tion rate), blood 2023 024 [facility]), [address] [place], [address], 11/27/2023 14:23:14 Referral None recorded. Procedures None recorded. Surgeries None recorded. Imaging CT, abdomen + pelvis, w/ contrast 2024 025 [email or web address] [facility], [address] [place], [address], 04/20/2025 15:55:27 XR, shoulder, 2 or more view 2024 025 [facility], [address] [place] [address], [id number], 08/25/2024 10:17:01 XR, foot, 3 or more view 2024 025 [facility], [address] [place] [address], [address], 08/25/2024 10:18:03 XR, ankle, 3 or more view 2024 025 [facility], [address] [place] [address], [address], 08/25/2024 10:17:48 XR, foot, 3 or more view 2023 024 [email or web address] Not available 12/20/2023 08:59:35 XR, ankle, 3 or more view 2023 024 [email or web address] Not available 12/20/2023 08:59:35 XR, ankle, 3 or more view 2023 024 SHANELL Not available 11/27/2023 18:05:31 XR, foot, 3 or more view 2023 024 SHANELL Not available 11/27/2023 18:03:05 Medication Orders meloxicam 15 mg tablet [address] [id number], [address], [place], [id number], 04/20/2025 14:23:46 neomycin- polymyxin -hydrocor t 3.5 mg-10,000 unit/mL-1 % ear drops,maritza p 2023 024 [email or web address] [facility], [address], [place], [id number], 04/20/2025 14:23:52 indometha mary 50 mg capsule 2023 024 [email or web address] [facility]83, [address], [place], [id number], 12/06/2023 11:03:03 Patient TargetsNo targets recorded. Patient InstructionsNo instructions recorded. Reason for Referral None Reported. Results Created Date Observation Date Name Description Value Unit Range Abnormal Flag Note LastModifiedBy Organization Detail LastModifiedTime 11/27/1911/27/2023 XR, foot, 3 or more view No observ ation record ed. [address], [address], 11/29/2023 12:28:05 11/27/19 24 11/27/2023 XR, ankle , 3 or more view No observ ation record ed. [address], [address], 11/29/2023 12:28:05 08/26/19 25 08/24/2024 XR, ankle , 3 or more view No observ ation record ed. [facility] [address] [place] [address], [id number], 08/25/2024 11:44:47 08/26/19 25 08/24/2024 XR, foot, 3 or more view No observ ation record ed. [facility] [address] [place] [address], [address], 08/25/2024 11:44:48 08/26/19 25 08/24/2024 XR, shoul juan m, 2 or more view No observ ation record ed. [address], [address], 08/25/2024 11:44:48 09/23/19 25 09/19/2024 MRI, shoul juan m, w/o contr ast No observ ation record ed. [email or web address] [address], [address], 09/23/2024 13:50:07 Result Notes None recorded. Problems Name Problem SNOMED Code Status Onset Date Resolution Date Notes Provider Name and Address Organization Details Recorded Time Anxiety 08188846 Active 2017 Titi jimenez [facility] 8 09:13:12 Panic attack 445849280 Active 2017 Titi jimenez [facility] 8 09:13:21 Goiter 1844253 Active 2018 Abdirahman Lincoln DO [address] [place], [address], [facility] 9 13:46:40 Pain of right hip joint 949273396767 102 Active 2021 CANDIDA TAPIA [address] [place], [address], [facility] 2 15:12:49 Impacted cerumen of bilateral ears 936548549823 9108 Active 2021 CANDIDA TAPIA [address] [place], [address], [facility] 2 15:12:59 Low back pain 526818956 Active 2021 CANDIDA TAPIA [address] [place], [address], [facility] 2 15:13:08 Lumbago with sciatica 516315149 Active 2022 CANDIDA TAPIA [address] [place], [address], [facility] 3 13:39:56 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 667499402490 105 Active 2022 CANDIDA TAPIA [address] [place], [address], [facility] 3 16:07:27 Deep pain on intercour se 755949427 Active 2023 Abdirahman Lincoln, DO [address] [place] [address], [address], [facility] 4 16:42:47 Dysmenorr hea 269984820 Active 2023 Abdirahman Lincoln DO [address] [place] [address], [address], [facility] 4 16:44:44 Gout 26196751 Active 2023 CANDIDA TAPIA [address] [place], [address], [facility] 4 10:48:35 Pain of right ankle joint 106974959571 20126 Active 2023 CANDIDA TAPIA [address] [place], [address], [facility] 4 14:12:45 Pain of ear 672745962 Active 2023 CANDIDA TAPIA [address] [place], [address], [facility] 4 11:14:03 Pain in left foot 281145132753 107 Active 2023 CANDIDA TAPIA [address] [place], [address], [facility] 4 11:15:28 Sore throat 740809098 Active 2023 CANDIDA TAPIA [address] [place] [address], [address], [facility] 4 12:04:18 Pain of left shoulder joint 534973103632 32049 Active 2024 CANDIDA TAPIA [address] [place] [address], [address], [facility] 5 14:16:03 Infraspin atus tendiniti s 578489446 Active 2024 CANDIDA TAPIA [address] [place] [address], [address], [facility] 5 14:16:25 Acute thoracic back pain 172601263 Active 2024 CANDIDA TAPIA [address] [place] [address], [address], [facility] 5 14:54:27 Right upper quadrant pain 389434816 Active 2024 CANDIDA TAPIA [address] [place] [address], [address], [facility] 5 14:54:47 Muscle spasm of thoracic back 272346554741 106 Active 2024 CANDIDA TAPIA [address] [place] [address], [address], [facility] 5 14:55:19 Problem Notes None recorded. Procedures Surgical History Date Name Laterality Status Provider Name and Address Organization Details Recorded Time 2 Cerumen Removal completed CANDIDA TAPIA [address] [place] [address] [place], [address], [facility] 10/17/2021 15:12:42 Imaging Results None recorded. Procedure Notes None recorded. Medical Equipment None Reported. Allergies Allergen ID Allergen Name Allergen Category Reaction Reaction Severity Criticality Documentation Date Start Date Code Code System Note Provider Name and Address Organization Details Recorded Time 51427 cholecalc iferol / tricalciu m phosphate medicatio n Not available Not available high 04/20/20252024 03206 38 RxNorm Cultu re in yogur t only - not gummy Not Available shanell - External Data Service - prod 5 03:11:35 Medications Name Sig Start Date Stop Date Status Note LastModified by Organization Details LastModified Time cyclobenz aprine 10 mg tablet TAKE 1 TABLET BY MOUTH THREE TIMES DAILY FOR 7 DAYS 10/27 completed Not Available Not Available Not Available venlafaxi ne ER 37.5 mg capsule,e xtended release 24 hr TAKE ONE CAPSULE BY MOUTH EVERY DAY 12/20 completed vertigo Not Available Not Available Not Available azithromy mary 250 mg tablet TAKE 2 TABLETS (500 MG) BY ORAL ROUTE ONCE DAILY FOR 1 DAY THEN 1 TABLET (250 MG) BY ORAL ROUTE ONCE DAILY FOR 4 DAYS 04/20 completed Not Available Not Available Not Available citalopra m 10 mg tablet Take 1 tablet every day by oral route for 30 days. 03/17 completed Not Available Not Available Not Available meloxicam 15 mg tablet TAKE 1 TABLET BY MOUTH EVERY DAY WITH A MEAL 04/20 completed Not Available Not Available Not Available prednison e 20 mg tablet TAKE 1 TABLET BY MOUTH EVERY DAY FOR 7 DAYS 10/27 completed Not Available Not Available Not Available sumatript an 50 mg tablet take 1 tablet at onset of sx. may repeat dose after 1 hour if needed 11/19 completed Not Available Not Available Not Available tramadol 50 mg tablet TAKE 1 TABLET BY MOUTH EVERY 6 HOURS FOR 7 DAYS NEEDED 10/27 completed Not Available Not Available Not Available citalopra m 20 mg tablet Take 1 tablet every day by oral route for 30 days. 03/17 completed Not Available Not Available Not Available amitripty line 10 mg tablet 10/27 completed Not Available Not Available Not Available indometha mary 50 mg capsule TAKE 1 CAPSULE BY MOUTH THREE TIMES DAILY FOR 5 DAYS DIRECTED 12/05 completed Not Available Not Available Not Available dextroamp hetamine- amphetami ne 15 mg tablet 01/17 completed Not Available Not Available Not Available sertralin e 25 mg tablet TAKE 1 TABLET BY MOUTH EVERY DAY 10/17 completed Not Available Not Available Not Available gabapenti n 100 mg capsule TAKE 1 CAPSULE BY MOUTH 3 TIMES A DAY. FOR THE FIRST THREE DAYS TAKE JUST 100 MG AT NIGHT BEFORE BEDTIME. THEN INCREASE TO 3X A DAY 12/05 completed Not Available Not Available Not Available estradiol 0.01% (0.1 mg/gram) vaginal cream PLACE 1 GRAM VAGINALL Y EVERY THIRD DAY 12/05 completed Not Available Not Available Not Available dextroamp hetamine- amphetami ne 5 mg tablet 01/17 completed Not Available Not Available Not Available neomycin- polymyxin -hydrocor t 3.5 mg-10,000 unit/mL-1 % ear drops,maritza p INSTILL 4 DROPS INTO AFFECTED EAR(S) BY OTIC ROUTE 3 TIMES PER DAY 04/20 completed Not Available Not Available Not Available Vitamin 27 mg iron-0.8 mg tablet TAKE 1 TABLET BY MOUTH ONCE DAILY 05/16 completed Not Available Not Available Not Available Ketone Urine Test strips USE TO TEST DAILY URINE 05/16 completed Not Available Not Available Not Available 28 mg iron-800 mcg tablet TAKE 1 TABLET BY MOUTH EVERY DAY 05/16 completed Not Available Not Available Not Available OneTouch Verio test strips TEST 4 TIMES DAILY 05/16 completed Not Available Not Available Not Available Levemir FlexTouch U-100 Insulin 100 unit/mL (3 mL) subcutane ous pen INJECT 10 UNITS UNDER THE SKIN ONCE DAILY IN THE EVENING 05/16 completed Not Available Not Available Not Available OneTouch Verio Flex Meter USE DAILY TO CHECK BLOOD GLUCOSE 05/16 completed Not Available Not Available Not Available BD Grace 2nd Gen Pen Needle 32 gauge x 5/32 USE FOR INSULIN INJECTIO N ONCE A DAY 05/16 completed Not Available Not Available Not Available OneTouch Delica Plus Lancet 33 gauge TEST 4 TIMES DAILY 05/16 completed Not Available Not Available Not Available Vitals Date Recorded Body height Provider Name an d Address Organization Details Last Updated DateTime 08/24/2024 180.34 cm Jessica Blank [facility] 08/24/2024 14:01:47 Date Recorded Body height Body mass index (BMI) Body weight Heart rate Oxygen saturation Systolic And Diastolic Provider Name and Address Organization Details Last Updated DateTime 4 175.26 cm 30.6 kg/m2 04644.6 2 g 92 /min 97 % 112/78 mm[Hg] Kayla Ramon [facility] 4 10:24:11 Date Recorded Body height Body mass index (BMI) Body weight Heart rate Oxygen saturation Systolic And Diastolic Provider Name and Address Organization Details Last Updated DateTime 4 180.34 cm 29.1 kg/m2 93226.8 1 g 70 /min 100 % 122/82 mm[Hg] Armin Brown [facility] 4 14:07:01 Date Recorded Body height Body mass index (BMI) Body weight Heart rate Oxygen saturation Systolic And Diastolic Provider Name and Address Organization Details Last Updated DateTime 4 180.34 cm 29.1 kg/m2 20484.8 1 g 76 /min 100 % 114/70 mm[Hg] Armin Brown [facility] 4 11:04:05 Date Recorded Body height Body mass index (BMI) Body weight Heart rate Oxygen saturation Systolic And Diastolic Provider Name and Address Organization Details Last Updated DateTime 5 180.34 cm 29.1 kg/m2 69724.8 1 g 78 /min 98 % 138/78 mm[Hg] Kayla Ramon [facility] 5 14:24:58 Social History Question Answer Notes LastModified by Organizat ion Details LastModified Time Tobacco Smoking Status Never Smoker Not Available [employer] 03/15/2020 03:36:24 What Was The Date Of Your Most Recent Tobacco Screening? 04/20/2025 [email or web address] Information not available 04/20/2025 Sex: Unknown Functional Status Question Answer Note LastModified by Organization D etails LastModified Time Do you or have you ever used any other forms of tobacco or nicotine? No [email or web address] Information not available 05/16/2022 Mental Status None recorded. Family History Nothing Reported. Medical History No medical history recorded. Gynecological HistoryNo gynecological history recorded. Obstetrics History GPAL:G 0 P 0 0 0 0 Immunizations Vaccine Type Date Status Note Provider Nam e and Address Organization Details Recorded Time Tdap 11/08/2021 completed Chelle Edwards [facility] 05/16/2022 13:58:06 Past Encounters Encounter ID Performer Location Encounter Start Date Encounter Closed Date Diagnosis/Indication Diagnosis SNOMED-CT Code Diagnosis ICD10 Code Diagnosis IMO Codes Diagnosis Note [id number] Abdirahman Lincoln [facility] [address],[place] [address] 01/17/2018 09:45:44 01/17/2018 10:43:00 Abdominal pain 93359942 R10.9 given her extreme tenderness to palpation, I have recommende d she go directly to the ER for imaging of her abdomen. she called her mother who will meet her at the ED. the pt wishes to drive herself and she feels only minor discomfort in the abdomen as long as there is no palpation. she has no urge to vomit at this time. a call ahead the ER has been made. Nausea 988355749 R11.0 Diarrhea 42418341 R19.7 [id number] Abdirahman Lincoln [address],[place] [address] 01/22/2018 09:43:55 01/22/2018 10:37:42 Abdominal pain 29884244 R10.9 improved given her wish to have any tests requiring blood work, I will recommend watchful waiting since she is improving. if she begins to worsen at any point she agrees to f/u otherwise, just rest and advance diet gradually as tolerated. Diarrhea 90044283 R19.7 resolved Loss of appetite 9602756 6 R63.0 improving [id number] Abdirahman Lincoln [facility] [address] [facility],[place] [address] 03/10/2018 09:37:30 03/10/2018 10:21:41 Sensation of blocked ear 056011657 H93.299 likely fluid in the ears, though it wasn't able to be fully visualized recommend flonase/paz dafed Anxiety 82868663 F41.9 Verruca plantaris 079819 08 B07.0 [id number] Abdirahman Lincoln [facility] [address] [facility] [address] 09/09/2018 08:54:33 09/09/2018 13:34:57 Acute low back pain 695168556 M54.5 here for rechk Anxiety 24241575 F41.9 Abdirahman Lincoln [facility] [address],[place] 7 10/03/2018 13:26:10 10/03/2018 13:46:36 Anxiety 94399288 F41.9 will cont the citalopram at 10 but pt will call if she feels she has hit plateau and we will increase to 20 [id number] Abdirahman Lincoln [facility] [address] [facility],[place] [address] 01/30/2019 13:23:24 01/30/2019 15:17:13 Anxiety 59503443 F41.9 will cont the citalopram at 10 but pt will call if she feels she has hit plateau and we will increase to 20 had stopped the citalopram for 10 days and still felt tired and had worse nightmares with panic she will try two tab daily Panic attack 442328636 F 41.0 as above mostly occurs out of a night mare Goiter 7051313 E04.9 will need lab Fatigue 04824602 R53.83 wondering if she has a low thyroid vs sleep disorder vs anemia or other metabolic [id number] Abdirahman Lincoln [facility] [address] [facility],[place] [address] 03/17/2019 10:57:18 03/17/2019 11:49:08 Acute sinusitis 13324466 J01.90 somewhat low suspicion of this will get sinus xr Migraine 09281908 G43.90 9 seems sx may be more consistent with migraine [id number] Abdirahman Lincoln [facility] [address] [facility] [address] [address] 11/20/2019 14:08:03 11/20/2019 16:29:22 Goiter 7149470 E04.9 will scan goiter and see if there is any changes Anxiety 60209528 F41.9 will start on medication and do a month f/u [id number] Abdirahman Lincoln [facility] [address] [facility] [address] [address] 12/21/2019 11:06:26 12/21/2019 12:03:25 Anxiety 04767498 F41.9 will try zoloft and see if she tolerates well her mother is on zoloft and has good tolerabili ty with it will fu in a month to see how she is doing Panic attack 461724050 F 41.0 still waking at night fro nightmares still having panic attacks intermitte ntly [id number] Abdirahman Lincoln [facility] [address] [facility],[place] [address] 02/03/2020 11:59:02 02/03/2020 14:29:48 Anxiety 49088512 F41.9 will stop trying different meds for now as she is trying for a baby now Panic attack 756091490 F 41.0 panic attacks getting better will still monitor them [id number] Abdirahman Lincoln [facility] [address] [facility],[place] [address] 10/17/2021 14:28:17 10/17/2021 15:18:33 Pain of right hip joint 4893944823 23321 M25.551 trial APAP, lidocaine patches, and/or biofreeze Low back pain 920191258 M54.59 trial APAP, lidocaine patches, and/or biofreeze Impacted c erumen of bilateral ears 0266140677 933388 H61.23 resolved [id number] Abdirahman Lincoln [facility] [address] [facility] [address] [address] 05/16/2022 13:52:11 05/17/2022 12:18:35 Low back pain 201314317 M54.59 will start on these medication s [id number] Abdirahman Lincoln [facility] [address] [facility],[place] [address] 07/02/2023 15:56:44 07/03/2023 08:53:30 Deep pain on intercourse 659547526 N94.12 Dysmenorrhea 290650127 N 94.6 [id number] Abdirahman Lincoln [facility] [address] [facility],[place] [address] 10/28/2023 10:16:42 10/28/2023 11:44:20 Depression screening 696678838 Z13.31 0 Gout 65643238 M10.071 will set up with indomethac in for the next 5 days Low back pain 203691668 M54.59 recommende d PT for pain strengthen ing [id number] Abdirahman Lincoln [facility] [address] [facility],[place] 7 11/27/2023 13:58:14 11/27/2023 14:36:48 Depression screening 412446084 Z13.31 0 Pain of ri ght ankle joint 6982233239 6930990 M25.571 agreed to fu ankel and foot XR since no complete resolution of pain and swelling Gout 90250345 M10.071 will set up with indomethac in for the next 5 days [id number] Abdirahman Lincoln [facility] [address],[place] 7 12/06/2023 10:55:48 12/09/2023 17:54:43 Pain of ear 129279399 H92.01 Pain in left foot 406209 3155 96509 M79.672 will set up with another XR to check if she has accessory bones in her other foot [id number] Abdirahman Lincoln [facility] [address] [facility] [address] [address] 08/24/2024 13:54:34 08/24/2024 14:36:20 Pain in left foot 3482709859 53542 M79.672 will set up with another XR to check if she has accessory bones in her other foot Pain of le ft shoulder joint 9052626226 9283731 M25.512 will set up with L shoulder imaging Infraspina tus tendinitis 610472660 M67.812 will start on meloxicam [id number] CANDIDA TAPIA [facility] [address],[place] [address] 04/20/2025 14:18:41 04/20/2025 15:55:27 Depression screening 657657556 Z13.31 0 Acute thor acic back pain 160524236 M54.6 16252828 less likely msk nature though cannot exclude muscle spasm Right uppe r quadrant pain 172216343 R10.11 121027 Muscle spa sm of thoracic back 8759659013 44505 M62.830 [id number] Health Concerns Section Related Observation LastModified by Organization Detai ls LastModified Time None Recorded Concern Status LastModified by Organization Details LastModified Time None Recorded Advance Directives Directive None Recorded Payers Insurance Date Sequence Insurance Name Policy Number Policy Perez Covered Member ID Perez Member ID Guarantor Name 04/20/2025 1 [place] [id number] Vijaya Christensen [id number] Vijaya Raymond 04/20/2025 1 [place] Vijaya Christensen [id number] Vijaya Raymond 04/20/2025 1 [place] [id number] Vijaya Christensen [id number] Vijaya Segundo 03/18/2019 1 *SELF PAY* Re capo Segundo 04/20/2025 1 [place] [facility] [id number] Vijaya Raymond [id number] Vijaya Raymond Notes Date Note Type Note Provider Name a nd Address Organization Details Recorded Time 10/28/2023 text/html ROS as noted in the HPI c/o R foot/ankle the patient developed R ankle pain on Saturday, no injury or traumathe patient ankle, lateral side, red, warm, very painful to the touchno bite, no mechanism of injurythe patient has a fam hx of goutdoes admit to note drinking enough water throughout the daycould also benefit from some dietary changes as well will start on indomethacin for the next 5 days, TID; told the patient to take with food, not on an empty stomach the patient is still having some intermittent back pain into the left groinsuggested PT for back, core and hip flexor strengthening which she will look intodepression screening 0 CANDIDA TAPIA [address] [place], [id number], [facility] 10/28/2023 11:05:11 11/27/2023 text/html ROS as noted in the HPI right foot and ankle pain was treated well with indomethacin for previous gout flare uphaving pain again in the foot, pain into the ankle and footthe patient does reports that she was playing soccer bare foot low likelihood of fx but could be ongoing gout issues vs gouty arthritic changes to the bone agreed to XRs and blood work CANDIDA TAPIA [address] [place], [address], [facility] 11/27/2023 14:24:58 12/06/2023 text/html ROS as noted in the HPI c/o right ear pain no blockage just pain, has inflammation in her ear, no signs of infection and some fluid behind the ear kahlil have her start sudafed for the next 5 to 7 days as well as use ear drop to help dry out the ear discussed the results of her XR of her right foot and anklehas to accessory/extra bones, usually congenital abnormality, wanted to check her other foot to know if that will cause issues in the future as well given ordersand number to [facility] to schedule her appt to talk about next steps with CANDIDA Chaparro [address] [place], [address], [facility] 12/06/2023 11:22:25 08/24/2024 text/html ROS as noted in the HPI c/o L shoulder The patient reports L shoulder painThe pain started about 4 days agoThe pain is characterized by pain around her shoulder bladeOn a scale of 1 to 10 the patient reports a at 9/10 worse and 3/10 at bestThe patient is R hand dominant Endorses weakness, radiation, reduced ROM, painThe pain is worsened by ext, flex, int rot, ex rot, circupain worse with lifting her kid, lifting herself out of a seatThe pain is alleviated by n/a has tried advil, apap and The patient denies known trauma or injuryThe patient reports repetitive activities with lifting ROM compared to unaffected shoulder is worsened due to pain, no mechanical aspect feels sharp and stabbing the patient has numbness occasionally throughout the arm, no specific place Pertinent comorbidities include n/a CANDIDA TAPIA [address] [place], [address], [facility] 08/24/2024 14:19:54 04/20/2025 text/html ROS as noted in the HPI c/o RUQ pain the patient has been having worsening upper back pain, spasms, starts at night after dinner, seems to be related to eating no other triggersno excess activities, ie no lifting bending no new activities the patient reports that it seems to be randomthe patient does say it is after dinner (she mostly just eat dinner) ?probable cholelithiasis, pt admits it seems to be related to food consumption CANDIDA TAPIA [address] [place], [address], [facility] 04/20/2025 15:08:26 OBGyn Episode No OBEpisode recorded.
--- OUTSIDE RECORDS SUMMARY | 2025-04-20 21:39 | XMS_ITS | Encounter Summary ---
Author Organization Formerly [facility] Address [address] [facility] [address] [place] [address] Phone Care Team Providers Care Shank Archer Name Role Phone Latonia, Abdirahman Quinn DO Unavailable Bigda, Abdirahman A DO Primary Care Provider [phone] Bigda, Abdirahman A DO Unavailable Bigda, Abdirahman A DO Primary Care Provider [phone] Reason for Referral * MRI/CAT Scan - Closed Specialty Diagnoses / Procedures Referred By Aminta t Referred To Contact Radiology Diagnoses Left-sided low back pain with left-sided sciatica, unspecified chronicity Procedures MRI Lumbar Spine Clara Yañez PA [address] [facility] [place] [address] Phone: tel: fax: Referral ID Status Reason Start Date Expiration Date Visits Re quested Visits Authorized [id number] Closed 05/22/2022 05/22/2023 1 1 Encounter Details Date Type Department Care Team (Latest Contact Info) Description 05/22/2022 Transcribe Orders Virtual Department [address] [place] [address] Clara Yañez PA [address] [facility] [place] [address] Left-sided low back pain with left-sided sciatica, unspecified chronicity (Primary Dx) Social History Tobacco Use Types Packs/Day Years Used Date Smoking Tobacco: Never Smokeless Tobacco: Never Alcohol Use Standard Drinks/Week Comments Not Currently 0 (1 standard drink = 0.6 oz pur e alcohol) Comments No Sex and Gender Information Value Date Recorded Sex Assigned at Female 01/17/2018 11:26 AM EDT Legal Sex Female 9:10 PM EDT Gender Identity Female 01/17/2018 11:26 AM EDT Sexual Orientation Not on file documented as of this encounter Plan of Treatment Not on file documented as of this encounter Results * MRI LUMBAR SPINE (BONE) WITHOUT CONTRAST (05/28/2022 6:36 PM EST) Anatomical Region Laterality Modality L-spine Magnetic Resonan ce 05/30/2022 11:0 4 AM EST Impressions 05/30/2022 11:08 AM EST L5-S1 disc desiccation with L5 inferior endplate marrow edema. This may reflect an acute to subacute Schmorl's node. No significant spinal canal or neuroforaminal stenosis in the lumbar spine. Narrative 05/30/2022 11:08 AM EST MRI LUMBAR SPINE (BONE) WITHOUT CONTRAST TECHNIQUE: MRI LUMBAR SPINE (BONE) WITHOUT CONTRAST Multi-sequence, multi-planar MRI of the lumbar spine was performed without intravenous contrast. COMPARISON: XR LUMBOSACRAL SPINE 4 OR MORE VIEWS FINDINGS: ALIGNMENT: No spondylolisthesis. MARROW: No compression fracture or marrow replacing lesion. DISCS: L5-S1 disc desiccation. L5 inferior endplate marrow edema. CONUS: Normal appearance and terminates at L1-2. PARASPINAL SOFT TISSUES: Within normal limits. FINDINGS BY LEVEL: T12-L1:No spinal canal or neuroforaminal stenosis. L1-2: No spinal canal or neuroforaminal stenosis. L2-3: No spinal canal or neuroforaminal stenosis. L3-4: No spinal canal or neuroforaminal stenosis. L4-5: Minimal posterior disc bulge. No spinal canal or neuroforaminal stenosis. L5-S1: No spinal canal or neuroforaminal stenosis. Procedure Note Nehemias Brown MD - 05/30/2022 MRI LUMBAR SPINE (BONE) WITHOUT CONTRAST TECHNIQUE: MRI LUMBAR SPINE (BONE) WITHOUT CONTRAST Multi-sequence, multi-planar MRI of the lumbar spine was performed withoutintravenous contrast. COMPARISON: XR LUMBOSACRAL SPINE 4 OR MORE VIEWS FINDINGS: ALIGNMENT: No spondylolisthesis. MARROW: No compression fracture or marrow replacing lesion. DISCS: L5-S1 disc desiccation. L5 inferior endplate marrow edema. CONUS: Normal appearance and terminates at L1-2. PARASPINAL SOFT TISSUES: Within normal limits. FINDINGS BY LEVEL: T12-L1:No spinal canal or neuroforaminal stenosis. L1-2: No spinal canal or neuroforaminal stenosis. L2-3: No spinal canal or neuroforaminal stenosis. L3-4: No spinal canal or neuroforaminal stenosis. L4-5: Minimal posterior disc bulge. No spinal canal or neuroforaminalstenosis. L5-S1: No spinal canal or neuroforaminal stenosis. IMPRESSION: L5-S1 disc desiccation with L5 inferior endplate marrow edema. This mayreflect an acute to subacute Schmorl's node. No significant spinal canal or neuroforaminal stenosis in the lumbarspine. Clara TIRADO IMG MR XSPECIALTY Final Res ult documented in this encounter Visit Diagnoses Diagnosis Left-sided low back pain with left-sided sciatica, unspecified chronicity- Primary Left-sided low back pain with left-sided sciatica, unspecified chronicity documented in this encounter Care Teams Shank Archer Relationship Specialty Start Date End Date Abdirahman Lincoln DO PCP - General 05/16/17 06/03/24 Abdirahman Lincoln DO [address] [place] [address] PCP - General Internal Medicine 06/04/24 Abdirahman Lincoln DO [email or web address] Historical LMR Provider 02/25/17 Abdirahman Lincoln DO [address] [place] [address] [email or web address] Insurance Assigned Provider 08/17/23 documented as of this encounter Additional Source Comments The information contained in this document represents components of the legal health record. It is not the complete legal health record.[facility]
--- OUTSIDE RECORDS SUMMARY | 2025-04-20 21:39 | XMS_ITS | Encounter Summary ---
Author Organization [facility] Address [address] [place] [address] Phone Care Team Providers Care Lpn Instructor Name Role Phone Latonia Abdirahman Quinn DO Unavailable Perla Gilmore CHAIR POST MACHINE OPERATOR Unavailable [phone] Valdez Chicas MD Unavailable [phone] Wong Perez MD Unavailable [phone] Sil Bautista NP Unavailable [phone] Abdirahman Lincoln DO Primary Care Provider [phone] Abdirahman Lincoln DO Unavailable Abdirahman Lincoln DO Primary Care Provider [phone] Encounter Details Date Type Department Care Team (Late st Contact Info) Description 09/09/2018 Transcribe Orders Virtual Department [address] [place] [address] Abdirahman Lincoln DO [address] [facility] [address] Acute low back pain, unspecified back pain laterality, with sciatica presence unspecified (Primary Dx) Social History Tobacco Use [...] documented as of this encounter Visit Diagnoses Diagnosis Acute low back pain, unspecified back pain laterality, with sciatica presence unspecified- Primary documented in this encounter Care Teams Lpn Instructor Relationship Specialty Start Date End Date Abdirahman Lincoln DO PCP - General 05/16/17 06/03/24 Abdirahman Lincoln DO [address] [place] [address] PCP - General Internal Medicine 06/04/24 Abdirahman Lincoln DO Historical LMR Provider 02/25/17 Perla Gilmore NP [address] [place] [address] [email or web address] Historical LMR Provider 02/25/17 2 Valdez Chicas MD [address] [address] Historical LMR Provider 02/25/17 05/20/21 Wong Perez MD [address] [place] [phone] Historical LMR Provider 02/25/17 2 Sil Bautista NP [address] [place] [address] Historical LMR Provider 02/25/17 2 Abdirahman Lincoln DO [address] [place] [address] [email or web address] Insurance Assigned Provider 08/17/23 documented as of this encounter Additional Source Comments The information contained in this document represents components of the legal health record. It is not the complete legal health record.[facility]
--- OUTSIDE RECORDS SUMMARY | 2025-04-20 21:39 | XMS_ITS | Encounter Summary ---
Author Organization [facility] Address [address] [place] [address] Phone Care Team Providers Care Sourcing Manager Name Role Phone Latonia, Abdirahman A DO Unavailable Bigda, Abdirahman A DO Primary Care Provider [phone] Bigda, Abdirahman A DO Unavailable Bigda, Abdirahman A DO Primary Care Provider [phone] Encounter Details Date Type Department Care Team (Latest Contact Info) Description 05/16/2022 Transcribe Orders Virtual Department [address] [place] [address] Clara Yañez PA [address] [place] [address] [place] [address] Other low back pain (Primary Dx) Social History Tobacco Use Types [...] documented as of this encounter Results * XR LUMBOSACRAL SPINE 4 OR MORE VIEWS (05/16/2022 4:23 PM EST) Anatomical Region Laterality Modality L-spine Computed Radiogr aphy 05/17/2022 7:33 AM EST Impressions 05/17/2022 7:34 AM EST No acute osseous abnormality. Narrative 05/17/2022 7:34 AM EST XR LUMBOSACRAL SPINE 4 OR MORE VIEWS COMPARISON: None FINDINGS: Normal alignment. Normal vertebral body heights. Normal intervertebral disc spaces. Intact sacroiliac joints. Procedure Note Susana Cox MD - 05/17/2022 XR LUMBOSACRAL SPINE 4 OR MORE VIEWS COMPARISON: None FINDINGS: Normal alignment. Normal vertebral body heights. Normal intervertebraldisc spaces. Intact sacroiliac joints. IMPRESSION: No acute osseous abnormality. us Clara TIRADO IMG XR SPINE Final Resul t documented in this encounter Visit Diagnoses Diagnosis Other low back pain- Primary Other low back pain documented in this encounter Care Teams Sourcing Manager Relationship Specialty Start Date End Date Abdirahman Lincoln DO PCP - General 05/16/17 06/03/24 Abdirahman Lincoln DO [address] [place] [address] PCP - General Internal Medicine 06/04/24 Abdirahman Lincoln DO [email or web address] Historical LMR Provider 02/25/17 Abdirahman Lincoln DO [address] [place] [address] [email or web address] Insurance Assigned Provider 08/17/23 documented as of this encounter Additional Source Comments The information contained in this document represents components of the legal health record. It is not the complete legal health record.[facility]
--- OUTSIDE RECORDS SUMMARY | 2025-04-20 21:40 | XMS_ITS | Encounter Summary ---
Author Organization [facility] Address [address] [place] [address] Phone Care Team Providers Care Portainer Operator Name Role Phone Latonia, Abdirahman Quinn DO Unavailable Bigda, Abdirahman A DO Primary Care Provider [phone] Bigda, Abdirahman Kai DO Unavailable Bigda, Abdirahman A DO Primary Care Provider [phone] Encounter Details Date Type Department Care Team (Late st Contact Info) Description 07/09/2023 Transcribe Orders Virtual Department [address] [place] [address] Abdirahman Lincoln, [address] [facility] [address] [place], [place] [id number] [email or web address] Deep dyspareunia (Primary Dx) Social History Tobacco Use Types [...] with a working camera? Not on file Comments No Sex and Gender Information Value Date Recorded Sex Assigned at Female 01/17/2018 11:26 AM EDT Legal Sex Female 9:10 PM EDT Gender Identity Female 01/17/2018 11:26 AM EDT Sexual Orientation Not on file documented as of this encounter Plan of Treatment Not on file documented as of this encounter Results * US PELVIS TRANSABDOMINAL PLUS TRANSVAGINAL (07/15/2023 6:47 PM EST) Anatomical Region Laterality Modality Pelvis, Uterus/Adnexa Ultrasound 07/16/2023 9:26 AM EST Impressions 07/16/2023 5:19 PM EST Limited endovaginal examination due to pain. Sonographic appearance of the uterus within normal limits. Limited evaluation of the bilateral ovaries sonographically. Narrative 07/16/2023 5:19 PM EST US PELVIS TRANSABDOMINAL PLUS TRANSVAGINAL Referring clinician's provided indication for this examination in Epic: Outside Radiology Order; deep pain on intercourse TECHNIQUE: Pelvic Ultrasound Transabdominal performed for global imaging of the pelvis. Pelvic Ultrasound Transvaginal performed for detailed imaging of the endometrium and/or adnexa. COMPARISON: Sonography 06/29/2021 FINDINGS: Endovaginal examination limited due to pain Uterus: Size: 8.7 x 3.4 cm. Orientation: retroverted Myometrium: Normal. Endometrium: Normal. Thickness: 10 mm. Right adnexa: Ovary: The right ovary is only able to be demonstrated transabdominally and measures 3.6 x 1.8 x 2.7 cm. Color Doppler waveform analysis within normal limits. Spectral Doppler waveform analysis unable to be demonstrated due to ovarian positioning and limitations of the study. Left adnexa: Ovary: The left ovary is partially demonstrated on endovaginal examination measuring 1.7 cm in width. The ovary is unable to be demonstrated entirety. Color Doppler waveform analysis within normal limits. Spectral Doppler waveform analysis unable to be demonstrated due to ovarian positioning and limitations of the study. Free fluid: No significant free fluid. Procedure Note Rosalba Parnell MD - 07/16/2023 US PELVIS TRANSABDOMINAL PLUS TRANSVAGINAL Referring clinician's provided indication for this examination in Epic:Outside Radiology Order; deep pain on intercourse TECHNIQUE: Pelvic Ultrasound Transabdominal performed for global imagingof the pelvis. Pelvic Ultrasound Transvaginal performed for detailedimaging of the endometrium and/or adnexa. COMPARISON: Sonography 06/29/2021 FINDINGS: Endovaginal examination limited due to pain Uterus: Size: 8.7 x 3.4 cm. Orientation: retroverted Myometrium: Normal. Endometrium: Normal. Thickness: 10 mm. Right adnexa: Ovary: The right ovary is only able to be demonstrated transabdominally andmeasures 3.6 x 1.8 x 2.7 cm. Color Doppler waveform analysis within normallimits. Spectral Doppler waveform analysis unable to be demonstrated dueto ovarian positioning and limitations of the study. Left adnexa: Ovary: The left ovary is partially demonstrated on endovaginal examinationmeasuring 1.7 cm in width. The ovary is unable to be demonstratedentirety. Color Doppler waveform analysis within normal limits. SpectralDoppler waveform analysis unable to be demonstrated due to ovarianpositioning and limitations of the study. Free fluid: No significant free fluid. IMPRESSION: Limited endovaginal examination due to pain. Sonographic appearance of theuterus within normal limits. Limited evaluation of the bilateral ovariessonographically. us Abdirahman Lincoln DO IMG US PELVIS Final Result documented in this encounter Visit Diagnoses Diagnosis Deep dyspareunia- Primary Deep dyspareunia documented in this encounter Care Teams Portainer Operator Relationship Specialty Start Date End Date Abdirahman Lincoln DO PCP - General 05/16/17 06/03/24 Abdirahman Lincoln DO [address] [place] [address] PCP - General Internal Medicine 06/04/24 Abdirahman Lincoln DO Historical LMR Provider 02/25/17 Abdirahman Lincoln DO [address] [place] [address] [email or web address] Insurance Assigned Provider 08/17/23 documented as of this encounter Additional Source Comments The information contained in this document represents components of the legal health record. It is not the complete legal health record.[facility]
--- OUTSIDE RECORDS SUMMARY | 2025-04-20 21:40 | XMS_ITS | Encounter Summary ---
Author Organization [facility] Address [address] [facility] [address] [place] [address] Phone Care Team Providers Care Curriculum Director Name Role Phone Abdirahman Lincoln DO Unavailable Bigda, Abdirahman A DO Unavailable Bigda, Abdirahman A DO Primary Care Provider [phone] Encounter Details Date Type Department Care Team (Late st Contact Info) Description 08/24/2024 Ancillary Orders [facility], X-Ray - [address] [address] Clara Yañez PA [address] [facility] [address] [place], [place] [id number] Pain in left foot (Primary Dx); Pain in joint of left shoulder Social History Tobacco Use Types Packs/Day Years [...] as of this encounter Results * XR SHOULDER 2 VIEWS (LEFT) (08/24/2024 3:01 PM EDT) Anatomical Region Laterality Modality Shoulder Left Computed Radiogr aphy 08/25/2024 10:1 1 AM EDT Impressions 08/25/2024 10:12 AM EDT No evidence of acute, displaced fracture or dislocation within the left shoulder. Minor acromioclavicular and glenohumeral degenerative changes without joint space narrowing or significant narrowing of the acromiohumeral interval. Narrative 08/25/2024 10:12 AM EDT XR SHOULDER 2 OR MORE VIEWS (LEFT) Referring clinician's provided indication for this examination in [facility]: Pain COMPARISON: None Procedure Note Murali Mccarty MD - 08/25/2024 XR SHOULDER 2 OR MORE VIEWS (LEFT) Referring clinician's provided indication for this examination in [facility]:Pain COMPARISON: None IMPRESSION: No evidence of acute, displaced fracture or dislocation within the leftshoulder. Minor acromioclavicular and glenohumeral degenerative changeswithout joint space narrowing or significant narrowing of theacromiohumeral interval. us Clara TIRADO IMG XR UPPER EXTREMITY Jacque l Result * XR ANKLE 3 OR MORE VIEWS (LEFT) (08/24/2024 3:00 PM EDT) Anatomical Region Laterality Modality Ankle Left Computed Radiogr aphy 08/25/2024 10:0 8 AM EDT Impressions 08/25/2024 10:10 AM EDT No visualized acute, displaced fracture or dislocation within the left ankle or foot. Ankle mortise is congruent. Talar dome is intact. Mild degenerative changes including at the first MTP joint with minor spurring. Minor degenerative change at the dorsal talonavicular joint. Tiny plantar and dorsal calcaneal spurs. Type II os navicularis noted. Narrative 08/25/2024 10:10 AM EDT XR FOOT 3 OR MORE VIEWS (LEFT), XR ANKLE 3 OR MORE VIEWS (LEFT) Referring clinician's provided indication for this examination in [facility]: Pain COMPARISON: Contralateral right foot and ankle radiographs of 11/27/2023. Procedure Note Murali Mccarty MD - 08/25/2024 XR FOOT 3 OR MORE VIEWS (LEFT), XR ANKLE 3 OR MORE VIEWS (LEFT) Referring clinician's provided indication for this examination in [facility]:Pain COMPARISON: Contralateral right foot and ankle radiographs of 11/27/2023. IMPRESSION: No visualized acute, displaced fracture or dislocation within the leftankle or foot. Ankle mortise is congruent. Talar dome is intact. Milddegenerative changes including at the first MTP joint with minor spurring.Minor degenerative change at the dorsal talonavicular joint. Tiny plantarand dorsal calcaneal spurs. Type II os navicularis noted. Clara Titi TIRADO IMG XR LOWER EXTREMITY Jacque l Result * XR FOOT 3 OR MORE VIEWS (LEFT) (08/24/2024 3:00 PM EDT) Anatomical Region Laterality Modality Foot Left Computed Radiogr aphy 08/25/2024 10:0 8 AM EDT Impressions 08/25/2024 10:10 AM EDT No visualized acute, displaced fracture or dislocation within the left ankle or foot. Ankle mortise is congruent. Talar dome is intact. Mild degenerative changes including at the first MTP joint with minor spurring. Minor degenerative change at the dorsal talonavicular joint. Tiny plantar and dorsal calcaneal spurs. Type II os navicularis noted. Narrative 08/25/2024 10:10 AM EDT XR FOOT 3 OR MORE VIEWS (LEFT), XR ANKLE 3 OR MORE VIEWS (LEFT) Referring clinician's provided indication for this examination in [facility]: Pain COMPARISON: Contralateral right foot and ankle radiographs of 11/27/2023. Procedure Note Murali Mccarty MD - 08/25/2024 XR FOOT 3 OR MORE VIEWS (LEFT), XR ANKLE 3 OR MORE VIEWS (LEFT) Referring clinician's provided indication for this examination in [facility]:Pain COMPARISON: Contralateral right foot and ankle radiographs of 11/27/2023. IMPRESSION: No visualized acute, displaced fracture or dislocation within the leftankle or foot. Ankle mortise is congruent. Talar dome is intact. Milddegenerative changes including at the first MTP joint with minor spurring.Minor degenerative change at the dorsal talonavicular joint. Tiny plantarand dorsal calcaneal spurs. Type II os navicularis noted. Clara TIRADO IMG XR LOWER EXTREMITY Jacque l Result documented in this encounter Visit Diagnoses Diagnosis Pain in left foot- Primary Pain in soft tissues of limb Pain in joint of left shoulder Pain in joint of left shoulder Pain in left foot Pain in soft tissues of limb Pain in left foot Pain in soft tissues of limb documented in this encounter Care Teams Curriculum Director Relationship Specialty Start Date End Date Abdirahman Lincoln DO [address] [place] [address] PCP - General Internal Medicine 06/04/24 Abdirahman Lincoln DO [email or web address] Historical LMR Provider 02/25/17 Abdirahman Lincoln DO [address] [place] [address] [email or web address] Insurance Assigned Provider 08/17/23 documented as of this encounter Additional Source Comments The information contained in this document represents components of the legal health record. It is not the complete legal health record.[facility]
--- OUTSIDE RECORDS SUMMARY | 2025-04-20 21:40 | XMS_ITS | Continuity of Care Document ---
Author Organization [facility], [facility] Address [address] [place] [address] Assessment No assessment recorded. Plan of Treatment Reminders Order Date Submit Date Provider Last Modified By Organization Details Last Modified Time Details Appointments FOLLOW UP 15 2024 02:30P CANDIDA WILLIAMSON Not available Not available Not available Lab CMP, serum or plasma 2024 025 [facility], [address] [place] [address], [id number], 04/20/2025 15:05:24 magnesium , serum or plasma 2024 025 [facility], [address] [place] [address], [id number], 04/20/2025 15:05:24 ESR (erythroc yte sedimenta tion rate), blood 2024 025 [facility], [address] [place] [address], [id number], 04/20/2025 15:05:24 C reactive protein, QN, serum or plasma 2024 025 [facility], [address] [place] [address], [id number], 04/20/2025 15:05:24 vitamin B12 + folate, serum or blood 2024 025 [facility], [address] [place] [address], [id number], 04/20/2025 15:05:24 hemoglobi n A1c, QN, blood 2024 025 [facility], [address] [place] [address], [id number], 04/20/2025 15:05:24 gamma-glu tamyl transfera se (ggt), serum 2024 025 [facility], [address] [place] [address], [id number], 04/20/2025 15:05:24 CBC w/ auto diff 2024 [facility], [address] [place] [address], [id number], 04/20/2025 15:05:24 Referral None recorded. Procedures None recorded. Surgeries None recorded. Imaging CT, abdomen + pelvis, w/ contrast 2024 025 [facility], [facility] [place], [id number], 04/20/2025 15:55:27 Medication Orders None recorded. Patient TargetsNo targets recorded. Patient InstructionsNo instructions recorded. Reason for Referral None Reported. Problems Name Problem SNOMED Code Status Onset Date Resolution Date Notes Provider Name and Address Organization Details Recorded Time Anxiety 93594768 Active 2017 Titi jimenez [facility] 8 09:13:12 Panic attack 521897336 Active 2017 Titi jimenez [facility] 8 09:13:21 Goiter 8988506 Active 2018 Abdirahman Lincoln DO [address] [place], [address], [facility] 9 13:46:40 Pain of right hip joint 193787269344 102 Active 2021 CANDIDA TAPIA [address] [place], [address], [facility] 2 15:12:49 Impacted cerumen of bilateral ears 407522694632 9108 Active 2021 CANDIDA TAPIA [address] [place] [address], [address], [facility] 2 15:12:59 Low back pain 221440349 Active 2021 CANDIDA TAPIA [address] [place] [address], [address], [facility] 2 15:13:08 Lumbago with sciatica 083098488 Active 2022 CANDIDA TAPIA [address] [place] [address], [address], 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 3 16:07:27 Deep pain on intercour se 961804905 Active 2023 Abdirahman Lincoln DO [address] [place] [address], [address], [facility] 4 16:42:47 Dysmenorr hea 254172307 Active 2023 Abdirahman Lincoln DO [address] [place] [address], [address], [facility] 4 16:44:44 Gout 12723351 Active 2023 CANDIDA TAPIA [address] [place] [address], [address], [facility] 4 10:48:35 Pain of right ankle joint 474656339080 17894 Active 2023 CANDIDA TAPIA [address] [place] [address], [address], [facility] 4 14:12:45 Pain of ear 154324568 Active 2023 CANDIDA TAPIA [address] [place], [address], [facility] 4 11:14:03 Pain in left foot 197904227063 107 Active 2023 CANDIDA TAPIA [address] [place], [address], [facility] 4 11:15:28 Sore throat 232278940 Active 2023 CANDIDA TAPIA [address] [place], [address], [facility] 4 12:04:18 Pain of left shoulder joint 792443400605 62864 Active 2024 CANDIDA TAPIA [address] [place] [address], [address], 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 5 14:16:25 Acute thoracic back pain 760656595 Active 2024 CANDIDA TAPIA [address] [place] [address], [address], [facility] 5 14:54:27 Right upper quadrant pain 808277888 Active 2024 CANDIDA TAPIA [address] [place] [address], [address], [facility] 5 14:54:47 Muscle spasm of thoracic back 552968915621 106 Active 2024 CANDIDA TAPIA [address] [place], [address], [facility] 5 14:55:19 Problem Notes None recorded. Procedures Surgical History Date Name Laterality Status Provider Name and Address Organization Details Recorded Time 2 Cerumen Removal completed CANDIDA TAPIA [address] [facility], [place], [address], [facility] 10/17/2021 15:12:42 Imaging Results None recorded. Procedure Notes None recorded. Medical Equipment None Reported. Allergies Allergen ID Allergen Name Allergen Category Reaction Reaction Severity Criticality Documentation Date Start Date Code Code System Note Provider Name and Address Organization Details Recorded Time 83669 cholecalc iferol / tricalciu m phosphate medicatio n Not available Not available high 04/20/20252024 45604 38 RxNorm Cultu re in yogur t [...] Not Available Vitals Date Recorded Body height Body mass index (BMI) Body weight Heart rate Oxygen saturation Systolic And Diastolic Provider Name and Address Organization Details Last Updated DateTime 180.34 cm 29.1 kg/m2 51125.8 1 g 78 /min 98 % 138/78 mm[Hg] Kayla Ramon [facility] 14:24:58 Social History Question Answer Notes LastModified by Organizat ion Details LastModified Time Tobacco Smoking Status Never Smoker Not Available [employer] 03/15/2020 03:36:24 What Was The Date Of Your Most Recent Tobacco Screening? 04/20/2025 [email or web address] Information not available 04/20/2025 Sex: Unknown Functional [...] Details Recorded Time Tdap 11/08/2021 completed Chelle jimenez [facility] 05/16/2022 13:58:06 Past Encounters Encounter ID Performer Location Encounter Start Date Encounter Closed Date Diagnosis/Indication Diagnosis SNOMED-CT Code Diagnosis ICD10 Code Diagnosis IMO Codes Diagnosis Note [id number] CANDIDA TAPIA [facility] [address] [facility] [address] 04/20/2025 14:18:41 04/20/2025 15:55:27 Depression screening 669856878 Z13.31 0 Acute thor acic back pain 348066225 M54.6 75677406 less likely msk nature though cannot exclude muscle spasm Right uppe r quadrant pain 573387495 R10.11 649676 Muscle spa sm of thoracic back 3614891859 11144 M62.830 [id number] Health Concerns Section Related Observation LastModified by Organization Detai ls LastModified Time None Recorded Concern Status LastModified by Organization Details LastModified Time None Recorded Payers Encounter Date Sequence Insurance Name Policy Number Policy Perez Covered Member ID Perez Member ID Guarantor Name 04/20/2025 1 [place] O [facility] (O) [id number] Vijaya Raymond [id number] Vijaya Raymond Notes Date Note Type Note Provider Name a nd Address Organization Details Recorded Time 04/20/2025 text/html ROS as noted in the [...] related to food consumption CANDIDA TAPIA [address] [place], [address], [facility] 04/20/2025 15:08:26 OBGyn Episode No OBEpisode recorded.
--- OUTSIDE RECORDS SUMMARY | 2025-04-20 21:40 | XMS_ITS | Encounter Summary ---
Author Organization [facility] Address [address] [place] [address] Phone Care Team Providers Care Tobacco Classer Name Role Phone Latonia, Abdirahman A DO Unavailable Bigda, Abdirahman A DO Primary Care Provider [phone] Bigda, Abdirahman A DO Unavailable Bigda, Abdirahman A DO Primary Care Provider [phone] Encounter Details Date Type Department Care Team (Late st Contact Info) Description 05/22/2022 Procedure Pass [facility], [address] [place] [address] Social History Tobacco Use Types Packs/Day Years [...] on file documented as of this encounter Last Filed Vital Signs Vital Sign Reading Time Taken Comments Blood Pressure - - Pulse - - Temperature - - Respiratory Rate - - Oxygen Saturation - - Inhaled Oxygen Concentration - - Weight 94.8 kg (209 lb) 05/24/2022 6:49 PM EST Height 180.3 cm (5' 11 ) 05/24/2022 6:49 PM EST Body Mass Index 29.15 05/24/2022 6:49 PM EST documented in this encounter Plan of Treatment Not on file documented as of this encounter Visit Diagnoses Not on filedocumented in this encounter Care Teams Tobacco Classer Relationship Specialty Start Date End Date Abdirahman Lincoln [email or web address] PCP - General 05/16/17 06/03/24 VicenteAbdirahman watkinsDO [address] [place] [address] PCP - General Internal Medicine 06/04/24 Latonia Abdirahman QuinnDO Historical LMR Provider 02/25/17 VicenteAbdirahman watkinsDO [address] [place] [address] Insurance Assigned Provider 08/17/23 documented as of this encounter Additional Source Comments The information contained in this document represents components of the legal health record. It is not the complete legal health record.[facility]
--- OUTSIDE RECORDS SUMMARY | 2025-04-20 21:40 | XMS_ITS | Encounter Summary ---
Author Organization [facility] Address [address] [address] Phone Care Team Providers Care Rrts Name Role Phone Latonia, Abdirahman A DO Unavailable Bigda, Abdirahman A DO Primary Care Provider [phone] Bigda, Abdirahman A DO Unavailable Bigda, Abdirahman A DO Primary Care Provider [phone] Encounter Details Date Type Department Care Team (Latest Contact Info) Description 12/06/2023 Transcribe Orders Virtual Department [address] [place] [address] Clara Yañez PA [address] [place] [address] [place] [address] Left foot pain (Primary Dx) Social History Tobacco Use [...] as of this encounter Visit Diagnoses Diagnosis Left foot pain- Primary Pain in soft tissues of limb documented in this encounter Care Teams Rrts Relationship Specialty Start Date End Date Abdirahman Lincoln DO [email or web address] PCP - General 05/16/17 06/03/24 Abdirahman Lincoln DO [address] [place] [address] PCP - General Internal Medicine 06/04/24 Abdirahman Lincoln DO [email or web address] Historical LMR Provider 02/25/17 Abdirahman Lincoln DO [address] [place] [address] [email or web address] Insurance Assigned Provider 08/17/23 documented as of this encounter Additional Source Comments The information contained in this document represents components of the legal health record. It is not the complete legal health record.[facility]
--- OUTSIDE RECORDS SUMMARY | 2025-04-20 21:40 | XMS_ITS | Encounter Summary ---
Author Organization [facility] Address [address] [facility] [address] [place] [address] Phone Care Team Providers Care Senior Search Marketing Analyst Name Role Phone Latonia, Abdirahman A DO Unavailable Bigda, Abdirahman A DO Primary Care Provider [phone] Bigda, Abdirahman A DO Unavailable Bigda, Abdirahman A DO Primary Care Provider [phone] Encounter Details Date Type Department Care Team (Late st Contact Info) Description 11/27/2023 Ancillary Orders [facility], X-Ray - [address] [address] Clara Yañez PA [address] [place] [address] [place] [address] Pain in right ankle and joints of right foot (Primary Dx) Social History Tobacco Use Types [...] as of this encounter Results * XR FOOT 3 OR MORE VIEWS (RIGHT) (11/27/2023 5:55 PM EDT) Anatomical Region Laterality Modality Foot Right Computed Radiogr aphy 11/27/2023 5:57 PM EDT Impressions 11/27/2023 5:58 PM EDT FINDINGS/IMPRESSION: There is no evidence of acute fracture, subluxation, or dislocation. The ankle mortise is intact. The joint spaces are preserved. 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 There is a small os peroneum. There are no acute soft tissue abnormalities. Narrative 11/27/2023 5:58 PM EDT XR ANKLE 3 OR MORE VIEWS (RIGHT), XR FOOT 3 OR MORE VIEWS (RIGHT) 11/27/2023 5:46 PM Referring clinician's provided indication for this examination in Epic: Pain COMPARISON: None Procedure Note Jeaneth Lopes MD - 11/27/2023 XR ANKLE 3 OR MORE VIEWS (RIGHT), XR FOOT 3 OR MORE VIEWS (RIGHT)11/27/2023 5:46 PM Referring clinician's provided indication for this examination in Epic:Pain COMPARISON: None IMPRESSION: FINDINGS/IMPRESSION: There is no evidence of acute fracture, subluxation, or dislocation. Theankle mortise is intact. The joint spaces are preserved. There is abipartite os naviculare. There is a small os peroneum. There are no acutesoft tissue abnormalities. Clara TIRADO IMG XR LOWER EXTREMITY Jacque l Result * XR ANKLE 3 OR MORE VIEWS (RIGHT) (11/27/2023 5:54 PM EDT) Anatomical Region Laterality Modality Ankle Right Computed Radiogr aphy 11/27/2023 5:57 PM EDT Impressions 11/27/2023 5:58 PM EDT FINDINGS/IMPRESSION: There is no evidence of acute fracture, subluxation, or dislocation. The ankle mortise is intact. The joint spaces are preserved. 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 There is a small os peroneum. There are no acute soft tissue abnormalities. Narrative 11/27/2023 5:58 PM EDT XR ANKLE 3 OR MORE VIEWS (RIGHT), XR FOOT 3 OR MORE VIEWS (RIGHT) 11/27/2023 5:46 PM Referring clinician's provided indication for this examination in [facility]: Pain COMPARISON: None Procedure Note Jeaneth Lopes MD - 11/27/2023 XR ANKLE 3 OR MORE VIEWS (RIGHT), XR FOOT 3 OR MORE VIEWS (RIGHT)11/27/2023 5:46 PM Referring clinician's provided indication for this examination in Epic:Pain COMPARISON: None IMPRESSION: FINDINGS/IMPRESSION: There is no evidence of acute fracture, subluxation, or dislocation. Theankle mortise is intact. The joint spaces are preserved. There is abipartite os naviculare. There is a small os peroneum. There are no acutesoft tissue abnormalities. Clara TIRADO IMG XR LOWER EXTREMITY Jacque l Result documented in this encounter Visit Diagnoses Diagnosis Pain in right ankle and joints of right foot- Primary Pain in right ankle and joints of right foot Pain in right ankle and joints of right foot documented in this encounter Care Teams Senior Search Marketing Analyst Relationship Specialty Start Date End Date Abdirahman Lincoln DO PCP - General 05/16/17 06/03/24 Abdirahman Lincoln DO [address] [place] [address] PCP - General Internal Medicine 06/04/24 Abdirahman Lincoln DO Historical LMR Provider 02/25/17 Abdirahman Lincoln DO [address] [place] [address] [place] [address] Insurance Assigned Provider 08/17/23 documented as of this encounter Additional Source Comments The information contained in this document represents components of the legal health record. It is not the complete legal health record.[facility]
== END 2025-04-20 15:13 | disposition home or self-care (01) ==
LOC: HO.MANLDS 15:12
PROVIDERS: Visit Provider Physician Assistant
DX: Z13.1 Encounter for screening for diabetes mellitus (principal); M62.830 Muscle spasm of back; R10.11 Right upper quadrant pain
CPT/HCPCS: 36415; 80053; 82607; 82746; 82977; 83036; 83735; 85652; 86140